=== PATIENT | male | born 1955 | race Hispanic/Latino ===

== ENCOUNTER 2016-10-02 16:35 | Observation (INO) | payer MEDICARE ==
--- NOTE | 2016-10-02 17:50 | Emergency Department Report ---
Entered by CAROLYN LEDEZMA, acting as scribe for BRIGHT BRAGA NP. Chief Complaint: Chest Pain Stated Complaint: CHEST PAINS/DIFFICULTY USING BATHROOM Time Seen by Provider: 10/02/16 17:38 - HPI History of Present Illness: 61 y/o male c/o diffuse chest pain for 1 month, 4/10 in severity, constant since onset, that "feels like someone is standing on him." PT reports urinary retention today but denies abdominal pain, nausea, vomiting, cough and SOB. - ROS Review of Systems: + chest pain + urinary retention - Exam Vital Signs: Vital Signs 10/02/16 17:39 Temperature 97.5 F L Pulse Rate 80 Respiratory 18 Rate Blood Pressure 148/89 O2 Sat by Pulse 96 Oximetry Physical Exam: Constitutional: The patient is a well-developed, well-nourished, in no apparent distress. Patient is alert and oriented x3. Back: No CVA tenderness Abdomen: soft, non- tender MSE screening note: Focused history and physical exam performed. Due to findings the following was ordered: labs, ekg, xr ED Disposition for MSE Condition: Stable This documentation as recorded by the scribe,CAROLYN LEDEZMA,accurately reflects the service I personally performed and the decisions made by me,BRIGHT BRAGA, CLASS C DRIVER.
[2016-10-02 18:05] LABS: Urine Drugs of Abuse Note Disclamer
[2016-10-02 18:32] LABS: Bilirubin,Urine NEG (Negative); Blood,Urine NEG (Negative); Ketones,Urine NEG (Negative); Leukocyte Esterase,Urine NEG (Negative); Nitrite,Urine NEG (Negative); Protein,Urine <15 mg/dL mg/dL (Negative); Urobilinogen,Urine < 2.0 mg/dL (<2.0)
[2016-10-02 18:43] LABS: Eosinophils % (Auto) 1.9 % (0.0-4.3); Hematocrit 42.2 % (35.5-45.6); Hemoglobin 14.4 gm/dl (11.8-15.2); Mean Corpuscular HGB Conc 34 % (32-34); Mean Corpuscular Hemoglobin 30 pg (28-32); Mean Corpuscular Volume 89 fl (84-94); Platelet Count 238 K/mm3 (140-440); Red Blood Count 4.74 M/mm3 (3.65-5.03); Red Cell Distribution Width 14.2 % (13.2-15.2); White Blood Count 7.4 K/mm3 (4.5-11.0)
[2016-10-02 18:50] LABS: Creatine Kinase MB 1.5 ng/mL (0.0-4.0)
[2016-10-02 18:51] LABS: Alanine Aminotransferase 15 units/L (7-56); Albumin 4.6 g/dL (3.9-5); Albumin/Globulin Ratio 1.6 %; Alkaline Phosphatase 45 units/L (35-129); Anion Gap 21 mmol/L; BUN/Creatinine Ratio 18.18; Blood Urea Nitrogen 20 mg/dL (9-20); Calcium 9.4 mg/dL (8.4-10.2); Carbon Dioxide 23 mmol/L (22-30); Chloride 96.8 mmol/L (98-107); Creatine Kinase 80 units/L (55-170); Glucose 96 mg/dL (75-100); Potassium 3.8 mmol/L (3.6-5.0); Sodium 137 mmol/L (137-145); Total Protein 7.4 g/dL (6.3-8.2)
[2016-10-03] MEDS ORDERED: NITRO-BID 2% TP ONE (02:53)
[2016-10-03] MEDS ORDERED: MORPHINE IV ONE (02:53)
[2016-10-03] MEDS ORDERED: ZOFRAN IV ONE (02:53)
[2016-10-03] MEDS ORDERED: PLAVIX PO ONE (02:53)
[2016-10-03] MEDS ORDERED: ASPIRIN PO ONE (02:54)
--- NOTE | 2016-10-03 02:58 | Emergency Department Report ---
HPI - General Chief Complaint: Chest Pain Time Seen by Provider: 10/02/16 17:38 - HPI HPI: Room 7 The patient is a 61-year-old male presenting with a chief complaint of chest pain. Patient states for 1 month is a waxing and waning substernal chest pain that feels as though someone standing on his chest. Patient denies shortness of breath, nausea/vomiting or diaphoresis. Patient currently gives his chest pain a score of 2/10. The patient states last time he had a stress test was over 5 years ago. The patient states she's never had a cardiac catheterization Location: Chest Duration: 1 month Quality: Pressure Severity: 2/10 Modifying factors: [see above] Context: [see above] Mode of transportation: [not driving] ED Past Medical Hx - Past Medical History Hx Hypertension: Yes Hx Psychiatric Treatment: Yes (bipolar / depression) Additional medical history: HIGH CHOLESTEROL. TIA. ENLARGED PROSTATE - Surgical History Past Surgical History?: No Additional Surgical History: KNOT REMOVED UNDER RIGHT ARM "CAT SCRATCH FEVER " - Family History Family history: no significant - Social History Smoking Status: Never Smoker Substance Use Type: None - Medications Home Medications: Home Medications Medication Instructions Recorded Confirmed Last Taken Type Acetaminophen [Tylenol Arthritis] 650 mg PO Q6HR PRN #15 tablet.er 01/30/16 Unknown Rx Levofloxacin [Levaquin] 750 mg PO QDAY #5 tablet 01/30/16 Unknown Rx Tamsulosin [Flomax] 0.4 mg PO QDAY #10 cap 01/30/16 Unknown Rx ED Review of Systems ROS: Stated complaint: CHEST PAINS/DIFFICULTY USING BATHROOM Other details as noted in HPI Comment: All other systems reviewed and negative Constitutional: denies: chills, diaphoresis, fever Eyes: denies: eye pain, eye discharge, vision change ENT: denies: ear pain, throat pain Respiratory: denies: cough, shortness of breath, wheezing Cardiovascular: chest pain Endocrine: no symptoms reported Gastrointestinal: denies: abdominal pain, nausea, vomiting, diarrhea Genitourinary: denies: urgency, dysuria Musculoskeletal: denies: back pain, joint swelling, arthralgia Skin: denies: rash, lesions Neurological: denies: headache, weakness, paresthesias Psychiatric: denies: anxiety, depression Hematological/Lymphatic: denies: easy bleeding, easy bruising Physical Exam - Physical Exam Vital Signs: Vital Signs 10/02/16 10/03/16 17:39 01:46 Temperature 97.5 F L 97.5 F L Pulse Rate 80 85 Respiratory 18 20 Rate Blood Pressure 148/89 156/85 O2 Sat by Pulse 96 Oximetry Physical Exam: GENERAL: The patient is well-developed well-nourished male lying on stretcher not appearing to be in acute distress. [] HEENT: Normocephalic. Atraumatic. Extraocular motions are intact. Patient has moist mucous membranes. NECK: Supple. Trachea midline CHEST/LUNGS: Clear to auscultation. There is no respiratory distress noted. HEART/CARDIOVASCULAR: Regular. There is no tachycardia. There is no gallop rub or murmur. ABDOMEN: Abdomen is soft, nontender. Patient has normal bowel sounds. There is no abdominal distention. SKIN: There is no rash. There is no edema. There is no diaphoresis. NEURO: The patient is awake, alert, and oriented. The patient is cooperative. The patient has normal speech MUSCULOSKELETAL: There is no evidence of acute injury. ED Course Vital Signs 10/02/16 10/03/16 17:39 01:46 Temperature 97.5 F L 97.5 F L Pulse Rate 80 85 Respiratory 18 20 Rate Blood Pressure 148/89 156/85 O2 Sat by Pulse 96 Oximetry ED Medical Decision Making - Lab Data Result diagrams: 10/02/16 17:56 10/02/16 17:56 Laboratory Last Values WBC 7.4 K/mm3 (4.5-11.0) 10/02/16 17:56 RBC 4.74 M/mm3 (3.65-5.03) 10/02/16 17:56 Hgb 14.4 gm/dl (11.8-15.2) 10/02/16 17:56 Hct 42.2 % (35.5-45.6) 10/02/16 17:56 MCV 89 fl (84-94) 10/02/16 17:56 MCH 30 pg (28-32) 10/02/16 17:56 MCHC 34 % (32-34) 10/02/16 17:56 RDW 14.2 % (13.2-15.2) 10/02/16 17:56 Plt Count 238 K/mm3 (140-440) 10/02/16 17:56 Lymph % (Auto) 35.6 % (13.4-35.0) H 10/02/16 17:56 [place] % (Auto) 9.5 % (0.0-7.3) H 10/02/16 17:56 Eos % (Auto) 1.9 % (0.0-4.3) 10/02/16 17:56 Baso % (Auto) 1.0 % (0.0-1.8) 10/02/16 17:56 Lymph # 2.6 K/mm3 (1.2-5.4) 10/02/16 17:56 [place] # 0.7 K/mm3 (0.0-0.8) 10/02/16 17:56 Eos # 0.1 K/mm3 (0.0-0.4) 10/02/16 17:56 Baso # 0.1 K/mm3 (0.0-0.1) 10/02/16 17:56 Seg Neutrophils % 52.0 % (40.0-70.0) 10/02/16 17:56 Seg Neutrophils # 3.9 K/mm3 (1.8-7.7) 10/02/16 17:56 Sodium 137 mmol/L (137-145) 10/02/16 17:56 Potassium 3.8 mmol/L (3.6-5.0) 10/02/16 17:56 Chloride 96.8 mmol/L (98-107) L 10/02/16 17:56 Carbon Dioxide 23 mmol/L (22-30) 10/02/16 17:56 Anion Gap 21 mmol/L 10/02/16 17:56 BUN 20 mg/dL (9-20) 10/02/16 17:56 Creatinine 1.1 mg/dL (0.8-1.5) 10/02/16 17:56 Estimated GFR > 60 ml/min 10/02/16 17:56 BUN/Creatinine Ratio 18.18 % 10/02/16 17:56 Glucose 96 mg/dL (75-100) 10/02/16 17:56 Calcium 9.4 mg/dL (8.4-10.2) 10/02/16 17:56 Total Bilirubin 0.40 mg/dL (0.1-1.2) 10/02/16 17:56 AST 21 units/L (5-40) 10/02/16 17:56 ALT 15 units/L (7-56) 10/02/16 17:56 Alkaline Phosphatase 45 units/L (35-129) 10/02/16 17:56 Total Creatine Kinase 80 units/L (55-170) 10/02/16 17:56 CK-MB (CK-2) 1.5 ng/mL (0.0-4.0) 10/02/16 17:56 CK-MB (CK-2) Rel Index 1.8 (0-4) 10/02/16 17:56 Troponin T < 0.010 ng/mL (0.00-0.029) 10/02/16 23:07 Total Protein 7.4 g/dL (6.3-8.2) 10/02/16 17:56 Albumin 4.6 g/dL (3.9-5) 10/02/16 17:56 Albumin/Globulin Ratio 1.6 % 10/02/16 17:56 Urine Color Yellow (Yellow) 10/02/16 Unknown Urine Turbidity Clear (Clear) 10/02/16 Unknown Urine pH 5.0 (5.0-7.0) 10/02/16 Unknown Ur Specific [place] 1.016 (1.003-1.030) 10/02/16 Unknown Urine Protein <15 mg/dl mg/dL (Negative) 10/02/16 Unknown Urine Glucose (UA) Neg mg/dL (Negative) 10/02/16 Unknown Urine Ketones Neg mg/dL (Negative) 10/02/16 Unknown Urine Blood Neg (Negative) 10/02/16 Unknown Urine Nitrite Neg (Negative) 10/02/16 Unknown Urine Bilirubin Neg (Negative) 10/02/16 Unknown Urine Urobilinogen < 2.0 mg/dL (<2.0) 10/02/16 Unknown Ur Leukocyte Esterase Neg (Negative) 10/02/16 Unknown Urine WBC (Auto) 3.0 /HPF (0.0-6.0) 10/02/16 Unknown Urine RBC (Auto) 2.0 /HPF (0.0-6.0) 10/02/16 Unknown U Epithel Cells (Auto) < 1.0 /HPF (0-13.0) 10/02/16 Unknown Urine Opiates Screen Presumptive negative 10/02/16 Unknown Urine Methadone Screen Presumptive negative 10/02/16 Unknown Ur Barbiturates Screen Presumptive negative 10/02/16 Unknown Ur Phencyclidine Scrn Presumptive negative 10/02/16 Unknown Ur Amphetamines Screen Presumptive negative 10/02/16 Unknown U Benzodiazepines Scrn Presumptive negative 10/02/16 Unknown Urine Cocaine Screen Presumptive negative 10/02/16 Unknown U Marijuana (THC) Screen Presumptive negative 10/02/16 Unknown Drugs of Abuse Note Disclamer 10/02/16 Unknown - EKG Data -: EKG Interpreted by Me EKG shows normal: sinus rhythm Rate: normal - EKG Data When compared to previous EKG there are: previous EKG unavailable Interpretation: other (no ischemic changes seen) - Radiology Data Radiology results: image reviewed (chest x-ray) interpreted by me: Chest x-ray-no focal infiltrates, no pneumothorax - Differential Diagnosis ACS, GERD, pericarditis Critical care attestation.: If time is entered above; I have spent that time in minutes in the direct care of this critically ill patient, excluding procedure time. ED Disposition Clinical Impression: Chest pain Disposition: DC-09 OP ADMIT IP TO THIS HOSP Is pt being admited?: Yes Does the pt Need Aspirin: Yes Condition: Fair Instructions: Chest Pain (ED) Referrals: PRIMARY CARE, [Primary Care Provider] - 3-5 Days Time of Disposition: 02:58 (hospitalist paged)
[2016-10-03] MEDS ORDERED: MORPHINE ONE ×2 (03:09)
[2016-10-03] MEDS ORDERED: MORPHINE IV PRN (04:53)
[2016-10-03] MEDS ORDERED: SODIUM CHLORIDE FLUSH SYRINGE 10 ML IV PRN (04:53)
[2016-10-03] MEDS ORDERED: MILK OF MAGNESIA PO PRN (04:53)
[2016-10-03] MEDS ORDERED: ZOFRAN IV PRN (04:53)
[2016-10-03] MEDS ORDERED: TYLENOL PO PRN (04:53)
[2016-10-03] MEDS ORDERED: DULCOLAX PR PRN (04:53)
--- NOTE | 2016-10-03 04:55 | History and Physical Report ---
History of Present Illness Date of examination: 10/03/16 History of present illness: [id number] man with a history of hypertension, bipolar comes emergency room with complaints of chest pain 1 month.. Pain is across his chest which she describes as someone standing on his chest, intermittent in nature, unable to say how long it last for, intensity 4/10, no radiation any cannot identify exacerbating or relieving factors. He denies nausea vomiting, shortness breath , diaphoresis or palpitation Patient denies cough, abdominal pain, hematochezia, dysuria, frequency, focal weakness, dysarthria, fever chills, polydipsia polyuria, hot or cold intolerance , easy bruisability, or rash or bleeding from mucosal membrane, rhinorrhea, epistaxis, earache, tinnitus, blurry vision, eye discharge, anxiety, depression. Other review of systems negative PAST SURGICAL HISTORY: None SOCIAL HISTORY: Denies alcohol, tobacco, drugs FAMILY HISTORY: Hypertension Medications and Allergies Allergies Allergy/AdvReac Type Severity Reaction Status Date / Time No Known Allergies Allergy Verified 10/02/16 17:37 Home Medications Medication Instructions Recorded Confirmed Last Taken Type Acetaminophen [Tylenol Arthritis] 650 mg PO Q6HR PRN #15 tablet.er 01/30/16 Unknown Rx Levofloxacin [Levaquin] 750 mg PO QDAY #5 tablet 01/30/16 Unknown Rx Tamsulosin [Flomax] 0.4 mg PO QDAY #10 cap 01/30/16 Unknown Rx Active Meds: Active Medications Tamsulosin HCl (Flomax) 0.4 mg PO QDAY COLE Exam - Physical Exam Narrative exam: Gen. appearance: Patient lying in bed, no apparent distress HEENT: Normocephalic, atraumatic, pupils equally round and reactive to light, extraocular movement intact, and no sclericterus,. No JVD or thyromegaly or nodule,neck supple, no carotid bruit ,mucous membranes moist, no exudate or erythema Heart: S1, S2, regular rate and rhythm Lungs: Clear to auscultation bilaterally, breathing comfortable Abdomen: Positive bowel sounds, nontender, nondistended, no organomegaly Extremity: No edema, cyanosis, clubbing Skin: No rash, nodules, warm, dry Neuro: Oriented 3, cranial nerves II-12 intact, speech is fluent, motor and sensory intact - Constitutional Vitals: Temp Pulse Resp BP Pulse Ox 97.5 F L 81 27 H 129/79 96 10/03/16 01:46 10/03/16 03:33 10/03/16 03:33 10/03/16 03:33 10/02/16 17:39 Results - Labs CBC & Chem 7: 10/02/16 17:56 10/02/16 17:56 Labs: Abnormal lab results 10/02/16 10/02/16 Range/Units 17:56 17:56 Lymph % (Auto) 35.6 H (13.4-35.0) % [place] % (Auto) 9.5 H (0.0-7.3) % Chloride 96.8 L (98-107) mmol/L - Imaging and Cardiology EKG: image reviewed Chest x-ray: image reviewed Assessment and Plan Atypical chest pain Hypertension Hyperlipidemia Bipolar History of TIA Admits medicine Check cardiac enzymes, lipid profile and obtain a stress test Start aspirin, IV morphine, DVT prophylaxis Continue appropriate outpatient medications
--- NOTE | 2016-10-03 07:37 | XRay Report ---
CHEST 2 VIEWS INDICATION: Chest pain. COMPARISON: None similar. FINDINGS: PA and lateral chest radiographs demonstrate normal cardiomediastinal silhouette. Clear lungs. Right hemidiaphragm minimally elevated. Possible osteopenia and few bony degenerative changes. CONCLUSION: No acute disease in the chest. Thank you for the opportunity to participate in this patient's care.
--- NOTE | 2016-10-03 08:02 | Admit Criteria Form ---
Admission Criteria Documentation: CARDIOLOGY GRG Clinical Indications for Admission to Inpatient Care ( Place 'X' for any and all applicable criteria): Hospital admission is needed for appropriate care of the patient because of ANY ONE of the following (1): [ ] I. Hemodynamic instability as indicated by ALL of the following (1)(2)(3) (4)(5) [ ]a) Vital signs or other findings not as expected for chronic patient condition or baseline [ ]b) Instability indicated by ANY ONE of the following: [ ]i) Hypotension [ ]ii) Symptomatic Tachycardia unresponsive to treatment ( e.g., analgesia, fluids, sedation as indicated) [ ]iii) Inadequate perfusion indicated by ANY ONE of the following: [ ] 1) Lactic acidosis (> 2 mmol/L) [ ] 2) New abnormal capillary refill (> 3 seconds) [ ] 3) Reduced urine output [ ] 4) New altered mental status [ ]iv) Orthostatic vital sign changes unresponsive to treatment (e.g., fluids) [ ]v) IV inotropic or vasopressor medication required to maintain adequate blood pressure or perfusion [ ] II. Severe heart failure as indicated by ANY ONE of the following(17)(18) [ ]a) Respiratory distress [ ]b) Hypotension [ ]c) Anasarca (refractory to outpatient therapy) [ ]d) Cardiac arrhythmias of immediate concern [ ]e) Myocardial ischemia [ ] III. Cardiac arrhythmias or findings of immediate concern indicated by ANY ONE of the following (19)(20): [ ] a) Heart rhythms that are inherently dangerous or unstable indicated by ANY ONE of the following (21)(22)(23): [ ] i) Resuscitated ventricular fibrillation or cardiac arrest [ ] ii) Ventricular escape rhythm [ ] iii) Sustained ventricular tachycardia (30 seconds or more of ventricular rhythm at greater than 100 beats per minute) [ ] iv) Nonsustained ventricular tachycardia and ANY ONE of the following: [ ] 1) Suspected cardiac ischemia as cause or consequence of ventricular tachycardia [ ] 2) In setting of acute myocarditis [ ] b) Unstable cardiac conduction defects indicated by ANY ONE of the following(23)(24)(25) [ ] i) Type II second-degree atrioventricular block [ ]ii) Third-degree atrioventricular block [ ]iii) New-onset left bundle branch block with suspected myocardial ischemia [ ]c) Any heart rhythm and ANY ONE of the following (21)(22)(26)(27) (28) [ ] i) Continuous long-term ECG monitoring needed (e.g., initiation of drug requiring monitoring for more than 24 hours) [ ] ii) Patient has automatic implanted cardioverter defibrillator that is repeatedly firing, malfunctioning, or in need of immediate adjustment of settings beyond the scope of ambulatory or observation care [ ]d) Heart rhythms of concern due to ANY ONE of the following: [ ] i) Hypotension [ ] ii) Respiratory distress [ ] iii) Association with other significant symptoms (e.g., bradycardia with syncope or ongoing dizziness, supraventricular tachycardia with chest pain (14)(15)(17) [ ] IV. Monitoring for cardiac contusion beyond the scope of observation care needed [A](30)(31)(32) [ ] V. Surgical or device complication (e.g., valve replacement complication , pacemaker dysfunction) (35)(41)(44)(45)(46) [ ] . Inpatient palliative care needed. [B](49) Also use Inpatient Palliative Care Criteria [ ] VII. Nonbacterial thrombotic (marantic) endocarditis (36)(43)(47)(48) [X ] VIII. Cardiology condition, symptom, or finding for which emergency and observation care has failed or are not considered appropriate. [ ] IX. Acute valvular disease requiring inpatient as indicated by ANY ONE of the following (41) [ ]a) Acute valvular regurgitation (42) [ ]b) Noninfectious valvulitis (43) [ ]c) Obstructive valve thrombosis [ ]d) Paravalvular leak [ ]e) Other significant valvular disorder remaining after emergency or observation level of care (as appropriate) [ ]X. Pericardial disease requiring inpatient treatment as indicated by ANY ONE of the following (33)(34)(35)(36)(37) [ ]a) Suspected tamponade (38)(39)(40) [ ]b) Hemopericardium [ ]c) Other significant pericardial disorder remaining after emergency or observation level of care (as appropriate) [ ] XI. Cardiac ischemia beyond scope of emergency and observation care. [ ] XII. Hypertension requiring inpatient treatment as indicated by ANY ONE of the following (6)(7)(8) [ ]a) SBP greater than 220 mm Hg or DBP greater than 120 mmHg despite treatment [ ]b) SBP greater than 140 mm Hg or DBP greater than 100 mm Hg with evidence of acute end organ damage as indicated by ANY ONE of the following [ ] i) Altered mental status [ ] ii) Acute renal failure as indicated by new onset of ANY ONE of the following (9)(10)(11)(12)(13) [ ]1) 3-fold rise in serum creatinine from baseline [ ]2) Serum creatinine greater than 4 mg/dL ( 354 micromoles/L) with acute rise greater than 0.5 mg/dL (44.2 micromoles/L) [ ]3) Reduction of more than 75% in estimated glomerular filtration rate from baseline [ ]4) Estimated glomerular filtration rate less than 35 mL/min/1.73m2 (0.59 mL/sec/1.73m2) in child up to 18 years of age [ ]5) Cessation of urine output indicated by ALL of the following [ ]A. Adequate volume status [ ]B. Inadequate urine output as indicated by ANY ONE of the following [ ]a. Urine output less than 0.3 mL/kg/hr for 24 hours [ ]b. Anuria (urine output less than 0.1 mL/kg/hr) for 12 hours [ ] iii) Aortic dissection [ ] iv) Myocardial Ischemia [ ] v) Left ventricular heart failure [ ]vi) Retinal Hemorrhage [ ]vii) Other significant finding [ ]c) Hypertension in child requiring inpatient treatment as indicated by ALL of the following(14)(15)(16) [ ] i) Outpatient treatment not effective, not available, or not appropriate [ ]ii) SBP or DBP greater than 95th percentile for age [ ]iii) Evidence of acute end organ damage as indicated by ANY ONE of the following [ ]1) Altered mental status [ ]2) Acute renal failure as indicated by new onset of ANY ONE of the following(9)(10)(11)(12)(13) [ ]A. 3-fold rise in serum creatinine from baseline [ ]B. Serum creatinine greater than 4 mg/dL (354 micromoles/L) with acute rise greater than 0.5 mg/dL (44.2 micromoles/L) [ ]C. Reduction of more than 75% in estimated glomerular filtration rate from baseline [ ]D. Estimated glomerular filtration rate less than 35 mL/min/1.73m2 (0.59 mL/sec/1.73m2) in child up to 18 years of age [ ]E. Cessation of urine output indicated by ALL of the following [ ]a. Adequate volume status [ ]b. Inadequate urine output as indicated by ANY ONE of the following [ ]i) Urine output less than 0.3 mL/kg/hr for 24 hours [ ]ii) Anuria ( urine output less than 0.1 mL/kg/hr) for 12 hours [ ]3) Severe headache [ ]4) Visual disturbance [ ]5) Retinal hemorrhage [ ]6) Other significant finding [ ]XIII. Complications of transplanted heart indicated by ANY ONE of the following(61): [ ]a) Acute graft rejection requiring inpatient management (eg, intravenous immunosuppression)(62)(63) [ ]b) Acute graft heart failure indicated by ANY ONE of the following(64): [ ]i) Hemodynamic instability [ ]ii) Cardiac arrhythmias of immediate concern [ ]iii) Pulmonary edema that is very severe (eg, mechanical ventilation needed, imminent or likely, need for 100% oxygen to keep oxygen saturation above 90%) [ ]iv) Pulmonary edema that is persistent as indicated by ALL of the following: [ ]1) New need for oxygen therapy to keep oxygen saturation above 90% (or increased FiO2 need from baseline) [ ]2) Has not improved sufficiently with emergency department or observation care IV diuretics or other heart failure treatments[E] [ ]v) Altered mental status that is severe or persistent [ ]vi) Increased creatinine (new on laboratory test) with reduction of more than 50% in estimated glomerular filtration rate from baseline [ ]vii) Progressively (ongoing) rising creatinine (known from past laboratory test) with reduction of more than 25% in estimated glomerular filtration rate from baseline [ ]viii) Acute renal failure [ ]ix) Acute peripheral ischemia (eg, examination shows pulseless, cool, mottled, or cyanotic extremity) [ ]x) Pulmonary artery catheter monitoring needed [ ]xi) Other sign or symptom of heart failure requiring inpatient treatment (ie, too severe or not responsive to outpatient and observation care treatment) [ ]c) Infection requiring inpatient management (eg, Hemodynamic instability, need for intravenous antimicrobial treatment)(66)(67)(68)(69)(70) [ ]d) Cardiac allograft vasculopathy requiring inpatient management ( eg evidence of cardiac ischemia)(71) [ ]e) Other complication of transplanted heart (eg, stroke, severe pulmonary hypertension, severe valvular dysfunction) requiring inpatient management(72) The original [facility] [employer] content created by [facility] has been revised. The portions of the content which have been revised are identified through the use of italic text or in bold, and [facility] has neither reviewed nor approved the modified material. All other unmodified content is copyright [facility] [employer]. Please see references footnoted in the original [facility] [employer] edition 2016 Admission Criteria Met: Yes
[2016-10-03] MEDS ORDERED: LEXISCAN IV ONE (09:20)
[2016-10-03] MEDS ORDERED: LOVENOX SUB-Q SCH ×2 (10:00)
[2016-10-03] MEDS ORDERED: FLOMAX PO SCH (10:00)
--- NOTE | 2016-10-03 10:45 | Discharge Summary ---
Providers - Providers Date of Admission: 10/03/16 04:53 Date of discharge: 10/03/16 Attending physician: DEBRA LAO Primary care physician: KELLI GARCIA MD Hospitalization Condition: Fair Hospital course: 61-year-old man with a history of hypertension, bipolar comes emergency room with complaints of chest pain 1 month. His Pain is across his chest which he describes as someone standing on his chest, intermittent in nature, unable to say how long it last for, intensity 4/10, no radiation and cannot identify exacerbating or relieving factors. He was monitored with serial cardiac enzymes and EKG. chest x-ray was unremarkable. Myocardium stress test was obtained and showed no reversible ischemia. He was discharged back to psych facility in stable condition. Discharge diagnoses: Atypical chest pain, likely due to GERD Hypertension, better controlled Hyperlipidemia Bipolar disorder History of TIA Disposition: DC-01 TO HOME OR SELFCARE Time spent for discharge: 34 minutes Core Measure Documentation - Palliative Care Palliative Care/ Comfort Measures: Not Applicable - Core Measures Any of the following diagnoses?: none Exam - Constitutional Vitals: Temp Pulse Resp BP Pulse Ox 98.8 F 86 18 147/72 95 10/03/16 09:31 10/03/16 09:31 10/03/16 09:31 10/03/16 09:31 10/03/16 09:31 General appearance: Present: no acute distress, well-nourished - EENT Eyes: Present: PERRL ENT: hearing intact, clear oral mucosa - Neck Neck: Present: supple, normal ROM - Respiratory Respiratory effort: normal Respiratory: bilateral: CTA - Cardiovascular Heart Sounds: Present: S1 & S2. Absent: rub, click - Extremities Extremities: pulses symmetrical, No edema Peripheral Pulses: within normal limits - Abdominal General gastrointestinal: Present: soft, non-tender, non-distended, normal bowel sounds - Integumentary Integumentary: Present: clear, warm, dry - Musculoskeletal Musculoskeletal: gait normal, strength equal bilaterally - Psychiatric Psychiatric: appropriate mood/affect, intact judgment & insight - Neurologic Neurologic: CNII-XII intact, moves all extremities Plan Activity: advance as tolerated Weight Bearing Status: Weight Bear as Tolerated Diet: low fat, low salt Follow up with: PRIMARY CARE, [Primary Care Provider] - 3-5 Days Prescriptions: Pantoprazole [Protonix TAB] 20 mg PO QDAY #30 tablet.
--- NOTE | 2016-10-03 13:38 | Query- Chest Pain ---
Bernardo Mart____Marcin Date: 10/03/16 Jayme/ROMEL:____Chauncey Morillosruthi Phone#:____[phone] Exercise your independent professional judgment when responding to query. Questions asked do not imply a particular answer is desired or expected. We greatly appreciate your clarification on this issue. Clinical Documentation States: 61 year old male was admitted on 10/03/16. The discharge summary states " Hospital course: Discharge diagnoses: Atypical chest pain Hypertension Hyperlipidemia Bipolar History of TIA " Please document the etiology of Chest Pain: [ ] Myocardial Infarction [ ] Pneumonia [ ] Mediastinitis [ ] Costochondritis [ ] Pulmonary Embolism [ ] Coronary Artery Disease [ X] GERD [ ] Other: [ ] Comment/Explanation: Present on Admission: [ X] Yes (Y) [ ] Clinically undeterminable (W) [ ] No(N) Please document response in your Progress Notes and/or Discharge Summary and indicate if the condition was present on admission. DEJON
--- NOTE | 2016-10-04 00:01 | Treadmill Report ---
REFERRING PHYSICIAN: Dr. Amberly Matamoros PROTOCOL: The patient was brought to the stress lab in a postabsorptive state, underwent rest imaging and 10 mCi of technetium given. Next, Lexiscan stress test performed via standard protocol. At peak stress, the patient was given 26 mCi of technetium 99m. Shortly thereafter, the patient underwent stress imaging. Interpretation raw imaging reveals mild GI artifact. No significant motion artifact. SPECT imaging examined carefully in the horizontal long axis, vertical long axis and short axis views. Technically mildly difficult study, but grossly it is normal. There appears to be normal homogenous uptake of radioisotope in all reported segments. No evidence of a significant fixed or reversible perfusion defects suggestive of prior infarction or ischemia. Gated wall motion reveals normal systolic thickening. Calculated ejection fraction of 68%. No TID. CONCLUSIONS: 1. Probably normal nuclear stress test without evidence of significant degree of prior infarction or active ischemia. 2. Normal left ventricular systolic performance without evidence of transient ischemic dilatation or stress-induced segmental wall motion abnormalities. [facility]# [id number] SBM/NTS
[2016-10-04 10:45] VITALS: BP 143/82
== END 2016-10-03 17:00 | disposition home or self-care (01) ==
LOC: ED 16:35 → INTOOBSV 10-03 04:53 → 4A 10-03 04:53
PROVIDERS: ADMIT Internal Medicine; ATTEND Internal Medicine
DX: R07.89 Other chest pain (principal); K21.9 Gastro-esophageal reflux disease without esophagitis; I10 Essential (primary) hypertension; F31.9 Bipolar disorder, unspecified; E78.5 Hyperlipidemia, unspecified; Z86.73 Personal history of transient ischemic attack (TIA), and cerebral infarction without residual deficits; Z82.49 Family history of ischemic heart disease and other diseases of the circulatory system
CPT/HCPCS: 36415; 71020; 78452; 80053; 80061; 80307; 81001; 82550; 82553; 84484; 85025; 85379; 93005; 93010; 93017; 94760; 96374; 96375; 99285; A9502; G0378; J1650; J2270; J2405; J2785

== ENCOUNTER 2017-10-07 13:55 | Emergency (ER) | payer MEDICARE ==
[2017-10-07 14:18] VITALS: BP 146/84
--- NOTE | 2017-10-07 18:08 | Emergency Department Report ---
ED Male HPI - General Chief complaint: Urogenital-Male Stated complaint: KIDNEY PROBLEMS Time Seen by Provider: 10/07/17 17:34 Source: patient Mode of arrival: Ambulatory Limitations: No Limitations - History of Present Illness Initial comments: This is a 62-year-old male nontoxic, well nourished in appearance, no acute signs of distress presents to the ED with c/o of dyrusia, urgency, and polyuria x4 days. Patient denies any testicular pain or swelling. Patient denies any penile discharge or penile ulcers. Patient denies any nausea, vomiting, chest pain, shortness of breathe, fever, chills, headache, back pain, numbness, tingling, stiff neck. Patient denies any other urinary symptoms. Patient denies any allergies or PMH. MD Complaint: dysuria Radiation: none Severity: mild Severity scale (0 -10): 3 Quality: burning Consistency: constant Improves with: none Worsens with: urination denies other symptoms, dysuria. denies: discharge, swelling, mass, rash, urinary retention, blood in urine, fever, nausea/vomiting, incontinence - Related Data Previous Rx's Medication Instructions Recorded Last Taken Type Pantoprazole [Protonix TAB] 20 mg PO QDAY #30 tablet. 10/03/16 Unknown Rx Tamsulosin [Flomax] 0.4 mg PO QDAY capsule 10/03/16 Unknown Rx Ciprofloxacin HCl [Ciprofloxacin 500 mg PO Q12HR #14 tab 10/07/17 Unknown Rx TAB] Allergies Allergy/AdvReac Type Severity Reaction Status Date / Time No Known Allergies Allergy Verified 10/02/16 17:37 ED Review of Systems ROS: Stated complaint: KIDNEY PROBLEMS Other details as noted in HPI Constitutional: denies: chills, fever Eyes: denies: eye pain, eye discharge, vision change ENT: denies: ear pain, throat pain Respiratory: denies: cough, shortness of breath, wheezing Cardiovascular: denies: chest pain, palpitations Endocrine: no symptoms reported Gastrointestinal: denies: abdominal pain, nausea, diarrhea Genitourinary: urgency, dysuria, frequency. denies: hematuria, discharge, testicular pain, testicular mass Musculoskeletal: denies: back pain, joint swelling, arthralgia Skin: denies: rash, lesions Neurological: denies: headache, weakness, paresthesias Psychiatric: denies: anxiety, depression Hematological/Lymphatic: denies: easy bleeding, easy bruising ED Past Medical Hx - Past Medical History Hx Hypertension: Yes Hx Psychiatric Treatment: Yes (bipolar / depression) Additional medical history: HIGH CHOLESTEROL. TIA. ENLARGED PROSTATE - Surgical History Additional Surgical History: KNOT REMOVED UNDER RIGHT ARM "CAT SCRATCH FEVER " - Social History Smoking Status: Never Smoker Substance Use Type: None - Medications Home Medications: Home Medications Medication Instructions Recorded Confirmed Last Taken Type Pantoprazole [Protonix TAB] 20 mg PO QDAY #30 tablet.dr 10/03/16 Unknown Rx Tamsulosin [Flomax] 0.4 mg PO QDAY capsule 10/03/16 Unknown Rx Ciprofloxacin HCl [Ciprofloxacin 500 mg PO Q12HR #14 tab 10/07/17 Unknown Rx TAB] ED Physical Exam - General Limitations: No Limitations General appearance: alert, in no apparent distress - Head Head exam: Present: atraumatic, normocephalic - Eye Eye exam: Present: normal appearance Pupils: Present: normal accommodation - ENT ENT exam: Present: normal exam, mucous membranes moist - Neck Neck exam: Present: normal inspection, full ROM. Absent: tenderness, meningismus, lymphadenopathy - Respiratory Respiratory exam: Present: normal lung sounds bilaterally. Absent: respiratory distress, wheezes, rales, rhonchi, stridor, chest wall tenderness, accessory muscle use, decreased breath sounds, prolonged expiratory - Cardiovascular Cardiovascular Exam: Present: regular rate, normal rhythm, normal heart sounds. Absent: irregular rhythm, systolic murmur, diastolic murmur, rubs, gallop - GI/Abdominal GI/Abdominal exam: Present: soft, normal bowel sounds. Absent: distended, tenderness, guarding, rebound, rigid, diminished bowel sounds - Rectal Rectal exam: Present: deferred - exam: Present: normal inspection. Absent: testicular tenderness, urethral discharge, scrotal swelling, vertical testicular lie External exam: Present: normal external exam. Absent: erythema, swelling, lesions, lacerations, ecchymosis, bleeding - Extremities Exam Extremities exam: Present: normal inspection, full ROM - Back Exam Back exam: Present: normal inspection, full ROM. Absent: tenderness, CVA tenderness (R), CVA tenderness (L), muscle spasm, paraspinal tenderness, vertebral tenderness, rash noted - Neurological Exam Neurological exam: Present: alert, oriented X3, normal gait - Psychiatric Psychiatric exam: Present: normal affect, normal mood - Skin Skin exam: Present: warm, dry, intact, normal color. Absent: rash ED Course Vital Signs 10/07/17 14:14 Temperature 97.7 F Pulse Rate 97 H Respiratory 16 Rate Blood Pressure 146/84 O2 Sat by Pulse 97 Oximetry - Reevaluation(s) Reevaluation #1: 10/07/17 18:07 Patient is speaking in full sentences with no signs of distress noted. ED Medical Decision Making - Medical Decision Making This is a 62-year-old male that presents for UTI. Patient is stable was examined by me. UA obtained. Urine culture pending. There is no CVA tenderness. Patient did receive 1 g of Rocephin in the ED. Patient denies any STD exposure. Patient discharged with ciprofloxacin 7 days. Patient was referred to Follow-up with a primary care doctor in 3-5 days or if symptoms worsen and continue return to emergency room as soon as possible. At time of discharge, the patient does not seem toxic or ill in appearance. No acute signs of distress noted. Patient agrees to discharge treatment plan of care. No further questions noted by the patient. Critical care attestation.: If time is entered above; I have spent that time in minutes in the direct care of this critically ill patient, excluding procedure time. ED Disposition Clinical Impression: UTI (urinary tract infection) Qualifiers: Urinary tract infection type: site unspecified Hematuria presence: without hematuria Qualified Code(s): N39.0 - Urinary tract infection, site not specified Disposition: DC-01 TO HOME OR SELFCARE Is pt being admited?: No Does the pt Need Aspirin: No Condition: Stable Instructions: Urinary Tract Infection in Men (ED), Ciprofloxacin (By mouth) Additional Instructions: Follow-up with a primary care doctor in 3-5 days or if symptoms worsen and continue return to emergency room as soon as possible. Prescriptions: Ciprofloxacin HCl [Ciprofloxacin TAB] 500 mg PO Q12HR #14 tab Referrals: KELLI GARCIA MD [Primary Care Provider] - 3-5 Days BURKE POSEY MD [Staff Physician] - 3-5 Days [facility] [Outside] - 3-5 Days [facility] [Outside] - 3-5 Days Forms: Work/School Release Form(ED)
[2017-10-07 18:48] LABS: Bacteria,Urine 2+ /HPF (Negative); Bilirubin,Urine NEG (Negative); Blood,Urine NEG (Negative); Color,Urine Yellow (Yellow); Mucus,Urine FEW /HPF; Protein,Urine <15 mg/dL mg/dL (Negative); Urobilinogen,Urine < 2.0 mg/dL (<2.0)
[2017-10-07] MEDS ORDERED: ROCEPHIN IM ONE (18:55)
[2017-10-07] MEDS ORDERED: XYLOCAINE 1% MPF 5 mL INFILTRATI ONE (18:55)
== END 2017-10-07 20:01 | disposition home or self-care (01) ==
LOC: ED 13:55
DX: N39.0 Urinary tract infection, site not specified (principal); F31.9 Bipolar disorder, unspecified; I10 Essential (primary) hypertension; E78.00 Pure hypercholesterolemia, unspecified; Z86.73 Personal history of transient ischemic attack (TIA), and cerebral infarction without residual deficits
CPT/HCPCS: 81001; 87086; 96372; 99283; J0696; 87076; 87186

== ENCOUNTER 2017-12-02 09:50 | Inpatient (IN) | payer MEDICARE ==
[2017-12-02] MEDS ORDERED: NACL 0.9% 500 ML 500 ML IV ONE (10:45)
--- NOTE | 2017-12-02 10:47 | Emergency Department Report ---
ED Syncope HPI - General Chief Complaint: Syncope Stated Complaint: SYNCOPY Time Seen by Provider: 12/02/17 10:36 Source: patient, EMS (ems notes not available at time of chart dictation), RN notes reviewed Exam Limitations: other (patient is a poor historian) - History of Present Illness Initial Comments: This is a 62-year-old gentleman who is not known to this provider previously. His past medical history includes hypertension, high cholesterol, TIA, bipolar and depression as well as schizoaffective disorder. Patient is brought to the hospital by EMS for evaluation of unprovoked syncope. Patient reports that he was walking and then passed out. He reports that prior to the event he did not have headache, neck pain, abdominal pain, shortness of breath. He indicates central chest pain which is now resolved. He denies DVT and pulmonary embolus risk factors. He complains of mild resolved chest pain which did not radiate where, exacerbating or relieving factors. He also complains of mild occipital headache where he fell. There is no midline neck pain. Timing/Prior Episodes: single episode today Precipitating Factors: Positive: none Context: activity Loss of Consciousness: brief (seconds) Current Symptoms: back to normal, chest pain - Related Data Allergies/Adverse Reactions: Allergies No Known Allergies Allergy (Verified 12/02/17 10:17) Home Medications: Ambulatory Orders Pantoprazole [Protonix TAB] 20 mg PO QDAY #30 tablet. 10/03/16 Tamsulosin [Flomax] 0.4 mg PO QDAY capsule 10/03/16 Ciprofloxacin HCl [Ciprofloxacin TAB] 500 mg PO Q12HR #14 tab 10/07/17 ED Review of Systems ROS: Stated complaint: SYNCOPY Other details as noted in HPI Comment: All other systems reviewed and negative Cardiovascular: chest pain, syncope Gastrointestinal: denies: abdominal pain Neurological: headache ED Past Medical Hx - Past Medical History Previous Medical History?: Yes Hx Hypertension: Yes Hx Renal Disease: Yes (CKD) Hx Psychiatric Treatment: Yes (bipolar / depression/schizoaffective) Additional medical history: HIGH CHOLESTEROL. TIA. ENLARGED PROSTATE - Surgical History Past Surgical History?: Yes Additional Surgical History: KNOT REMOVED UNDER RIGHT ARM "CAT SCRATCH FEVER ", tonsilectomy - Social History Smoking Status: Former Smoker Substance Use Type: None - Medications Home Medications: Home Medications Medication Instructions Recorded Confirmed Last Taken Type Pantoprazole [Protonix TAB] 20 mg PO QDAY #30 tablet. 10/03/16 Unknown Rx Tamsulosin [Flomax] 0.4 mg PO QDAY capsule 10/03/16 Unknown Rx Ciprofloxacin HCl [Ciprofloxacin 500 mg PO Q12HR #14 tab 10/07/17 Unknown Rx TAB] ED Physical Exam - General Limitations: No Limitations General appearance: alert, in no apparent distress - Head Head exam: Present: atraumatic, normocephalic - Eye Eye exam: Present: normal appearance, PERRL, EOMI, other (visual acuity intact to finger counting, color perception, reading at a close distance). Absent: nystagmus - ENT ENT exam: Present: normal exam, normal orophraynx, mucous membranes moist, normal external ear exam - Neck Neck exam: Present: normal inspection, full ROM - Respiratory Respiratory exam: Present: normal lung sounds bilaterally. Absent: respiratory distress - Cardiovascular Cardiovascular Exam: Present: regular rate, normal rhythm, normal heart sounds. Absent: bradycardia, tachycardia, irregular rhythm, systolic murmur, diastolic murmur, rubs, gallop - GI/Abdominal GI/Abdominal exam: Present: soft, normal bowel sounds. Absent: distended, tenderness, guarding, rebound, rigid, pulsatile mass - Rectal Rectal exam: Present: deferred - Extremities Exam Extremities exam: Present: normal inspection, full ROM, normal capillary refill , other (2+ pulses noted in the bilateral upper, lower extremities. Compartments soft. No long bony tenderness. The pelvis is stable.). Absent: pedal edema, joint swelling, calf tenderness - Back Exam Back exam: Present: normal inspection, full ROM. Absent: tenderness, CVA tenderness (R), paraspinal tenderness, vertebral tenderness - Neurological Exam Neurological exam: Present: alert, oriented X3, CN II-XII intact, other ( Extraocular movements intact. Tongue midline. No facial droop. Facial sensation intact to light touch in the V1, V2, V3 distribution bilaterally. 5 and 5 strength in 4 extremities.. Sensation is intact to light touch in 4 extremities.). Absent: motor sensory deficit - Psychiatric Psychiatric exam: Present: flat affect - Skin Skin exam: Present: warm, dry, intact, normal color. Absent: rash ED Course Vital Signs 12/02/17 12/02/17 12/02/17 09:50 09:57 10:00 Temperature 98.2 F Pulse Rate 64 67 Respiratory 19 20 16 Rate Blood Pressure 125/63 125/63 O2 Sat by Pulse 99 99 100 Oximetry 12/02/17 12/02/17 12/02/17 10:30 11:00 11:30 Temperature Pulse Rate 66 65 66 Respiratory 18 18 21 Rate Blood Pressure 132/57 120/66 126/76 O2 Sat by Pulse 99 99 99 Oximetry 12/02/17 12/02/17 12:00 12:30 Temperature Pulse Rate 66 69 Respiratory 17 24 Rate Blood Pressure 136/68 122/70 O2 Sat by Pulse 98 98 Oximetry - Reevaluation(s) Reevaluation #1: 12/02/17 12:37 Differential diagnosis, including but not limited to: Orthostasis, vagal event, acute coronary syndrome, structural cardiac disease, pulmonary embolus, intracranial injury, intracranial hemorrhage, Assessment and plan: 62-year-old gentleman with resolved chest pain and single episode of syncope. Clinically sober at this time, with a Tevin Coma Scale of 15, and an nih -score of 0.Patient is clinically sober at this time. The cervical spine is cleared through nexus and nepalese c spine rule a noncontrast CT scan of the brain is pending. A CT angiogram of the chest to exclude aortic disease/pulmonary embolus is pending. X-ray chest is negative. Patient will be admitted to the hospital for cardiac risk stratification once his initial diagnostics have returned. Reevaluation #2: 12/02/17 13:54 CT scan of the brain is negative. CT scan of the chest is negative. Hospital physician is paged to arrange admission. Reevaluation #3: 12/02/17 14:33 Dr Mckenzie Reynolds accepts patient ED Medical Decision Making - Lab Data Result diagrams: 12/02/17 11:20 12/02/17 11:20 Vital Signs 12/02/17 09:50 Temperature 98.2 F Pulse Rate 64 Respiratory 19 Rate Blood Pressure 125/63 O2 Sat by Pulse 99 Oximetry Lab Results 12/02/17 12/02/17 12/02/17 Range/Units 11:20 11:20 11:20 WBC 5.1 (4.5-11.0) K/mm3 RBC 4.26 (3.65-5.03) M/mm3 Hgb 13.7 (11.8-15.2) gm/dl Hct 39.7 (35.5-45.6) % MCV 93 (84-94) fl MCH 32 (28-32) pg MCHC 34 (32-34) % RDW 15.3 H (13.2-15.2) % Plt Count 254 (140-440) K/mm3 Lymph % (Auto) 29.4 (13.4-35.0) % [place] % (Auto) 10.6 H (0.0-7.3) % Eos % (Auto) 2.1 (0.0-4.3) % Baso % (Auto) 0.6 (0.0-1.8) % Lymph # 1.5 (1.2-5.4) K/mm3 [place] # 0.5 (0.0-0.8) K/mm3 Eos # 0.1 (0.0-0.4) K/mm3 Baso # 0.0 (0.0-0.1) K/mm3 Seg Neutrophils % 57.3 (40.0-70.0) % Seg Neutrophils # 2.9 (1.8-7.7) K/mm3 PT 14.1 (12.2-14.9) Sec. INR 1.04 (0.87-1.13) Sodium 136 L (137-145) mmol/L Potassium 5.5 H (3.6-5.0) mmol/L Chloride 101.4 (98-107) mmol/L Carbon Dioxide 22 (22-30) mmol/L Anion Gap 18 mmol/L BUN 22 H (9-20) mg/dL Creatinine 1.4 (0.8-1.5) mg/dL Estimated GFR 51 ml/min BUN/Creatinine Ratio 16 % Glucose 112 H (75-100) mg/dL Calcium 9.1 (8.4-10.2) mg/dL Magnesium 2.20 (1.7-2.3) mg/dL Total Bilirubin 0.60 (0.1-1.2) mg/dL AST 22 (5-40) units/L ALT 13 (7-56) units/L Alkaline Phosphatase 52 (35-129) units/L Total Creatine Kinase (55-170) units/L Troponin T < 0.010 (0.00-0.029) ng/mL Total Protein 7.6 (6.3-8.2) g/dL Albumin 4.4 (3.9-5) g/dL Albumin/Globulin Ratio 1.4 % Salicylates (2.8-20.0) mg/dL Acetaminophen (10.0-30.0) ug/mL 12/02/17 12/02/17 12/02/17 Range/Units 11:20 11:20 11:20 WBC (4.5-11.0) K/mm3 RBC (3.65-5.03) M/mm3 Hgb (11.8-15.2) gm/dl Hct (35.5-45.6) % MCV (84-94) fl MCH (28-32) pg MCHC (32-34) % RDW (13.2-15.2) % Plt Count (140-440) K/mm3 Lymph % (Auto) (13.4-35.0) % [place] % (Auto) (0.0-7.3) % Eos % (Auto) (0.0-4.3) % Baso % (Auto) (0.0-1.8) % Lymph # (1.2-5.4) K/mm3 [place] # (0.0-0.8) K/mm3 Eos # (0.0-0.4) K/mm3 Baso # (0.0-0.1) K/mm3 Seg Neutrophils % (40.0-70.0) % Seg Neutrophils # (1.8-7.7) K/mm3 PT (12.2-14.9) Sec. INR (0.87-1.13) Sodium (137-145) mmol/L Potassium (3.6-5.0) mmol/L Chloride (98-107) mmol/L Carbon Dioxide (22-30) mmol/L Anion Gap mmol/L BUN (9-20) mg/dL Creatinine (0.8-1.5) mg/dL Estimated GFR ml/min BUN/Creatinine Ratio % Glucose (75-100) mg/dL Calcium (8.4-10.2) mg/dL Magnesium (1.7-2.3) mg/dL Total Bilirubin (0.1-1.2) mg/dL AST (5-40) units/L ALT (7-56) units/L Alkaline Phosphatase (35-129) units/L Total Creatine Kinase 61 (55-170) units/L Troponin T (0.00-0.029) ng/mL Total Protein (6.3-8.2) g/dL Albumin (3.9-5) g/dL Albumin/Globulin Ratio % Salicylates < 0.3 L (2.8-20.0) mg/dL Acetaminophen < 5.0 L (10.0-30.0) ug/mL - EKG Data -: EKG Interpreted by Me EKG shows normal: sinus rhythm, axis, intervals, QRS complexes, ST-T waves - EKG Data When compared to previous EKG there are: previous EKG unavailable - Radiology Data Radiology results: image reviewed X-ray the chest is interpreted as being negative for acute disease. Critical care attestation.: If time is entered above; I have spent that time in minutes in the direct care of this critically ill patient, excluding procedure time. ED Disposition Clinical Impression: Chest pain, Syncope Disposition: 09 OP ADMIT IP TO THIS HOSP Is pt being admited?: Yes Does the pt Need Aspirin: Yes Condition: Good Instructions: Chest Pain (ED), Syncope (ED) Referrals: PRIMARY CARE, [Primary Care Provider] - 3-5 Days
--- NOTE | 2017-12-02 10:58 | XRay Report ---
AP CHEST: HISTORY: Syncope Partial atelectasis in the right middle lobe or right lower lobe has developed since 10/02/16 exam. Otherwise, the lungs are clear. No large pleural effusion or pneumothorax. Normal heart and mediastinal structures. IMPRESSION: Atelectatic changes at the right lung base. Otherwise, unremarkable AP chest.
[2017-12-02 11:37] LABS: Basophils % (Auto) 0.6 % (0.0-1.8); Eosinophils # (Auto) 0.1 K/mm3 (0.0-0.4); Eosinophils % (Auto) 2.1 % (0.0-4.3); Hematocrit 39.7 % (35.5-45.6); Hemoglobin 13.7 gm/dl (11.8-15.2); Lymphocytes # (Auto) 1.5 K/mm3 (1.2-5.4); Lymphocytes % (Auto) 29.4 % (13.4-35.0); Mean Corpuscular HGB Conc 34 % (32-34); Mean Corpuscular Hemoglobin 32 pg (28-32); Mean Corpuscular Volume 93 fl (84-94); Monocytes # (Auto) 0.5 K/mm3 (0.0-0.8); Monocytes % (Auto) 10.6 % (0.0-7.3); Platelet Count 254 K/mm3 (140-440); Red Blood Count 4.26 M/mm3 (3.65-5.03); Red Cell Distribution Width 15.3 % (13.2-15.2)
[2017-12-02 11:48] LABS: INR 1.04 (0.87-1.13)
[2017-12-02 12:15] LABS: Alanine Aminotransferase 13 units/L (7-56); Albumin 4.4 g/dL (3.9-5); BUN/Creatinine Ratio 16; Blood Urea Nitrogen 22 mg/dL (9-20); Calcium 9.1 mg/dL (8.4-10.2); Hemolysis Index 9
--- NOTE | 2017-12-02 13:42 | Cat Scan Report ---
CT HEAD WITHOUT CONTRAST: HISTORY: Syncope. TECHNIQUE: Sequential 2.5mm CT images. COMPARISON: none. FINDINGS: Cerebral Parenchyma: Within normal limits. Cerebellum: Within normal limits. Brainstem: Within normal limits. Ventricles: Normal. Sella: Normal. Extra-axial spaces: Normal. Basal Cisterns: Normal. Intracranial Hemorrhage: None. Midline Shift: None. Calvarium: Normal. Sinuses: Normal. Mastoid Air Cells: Normal. Visualized Orbits: Normal. IMPRESSION: Cranial CT scan within normal limits.
--- NOTE | 2017-12-02 13:48 | Cat Scan Report ---
CTA CHEST: HISTORY: Chest pain, syncope. COMPARISON: none. TECHNIQUE: Helical CT in 1.25mm intervals following IV contrast. Pulmonary embolus protocol. Sagittal and coronal reformatted images. Rotational MIP images. FINDINGS: Contrast bolus is satisfactory. No pulmonary embolus is identified. Thyroid gland: Normal. Tracheobronchial tree: Normal. Esophagus: Normal. Heart: Normal. Pericardium: Normal. Mediastinum: Normal. Lung Terry: normal. Pleural Spaces: Normal. Musculoskeletal: Mild thoracic spondylosis. Comment: Limited images of the upper abdomen demonstrate numerous tiny calcified gallstones within the gallbladder. No biliary dilatation or inflammation. Mild renal atrophy is also suspected. IMPRESSION: No evidence for pulmonary embolus. Unremarkable CT chest with contrast. Cholelithiasis.
[2017-12-02] MEDS ORDERED: KIONEX PO ONE (14:33)
[2017-12-02] MEDS ORDERED: BABY ASPIRIN PO ONE (14:34)
[2017-12-02] MEDS ORDERED: BABY ASPIRIN ONE (15:45)
[2017-12-02] MEDS ORDERED: KIONEX ONE (15:45)
--- NOTE | 2017-12-02 19:34 | History and Physical Report ---
History of Present Illness Date of admission: 12/02/17 14:32 Medications and Allergies Allergies Allergy/AdvReac Type Severity Reaction Status Date / Time No Known Allergies Allergy Verified 12/02/17 10:17 Home Medications Medication Instructions Recorded Confirmed Last Taken Type Ciprofloxacin HCl [Ciprofloxacin 500 mg PO Q12HR #14 tab 10/07/17 12/02/17 Unknown Rx TAB] Amlodipine Besylate [Norvasc] 2.5 mg PO DAILY 12/02/17 12/02/17 Unknown History Benztropine [Cogentin] 2 mg PO QHS 12/02/17 12/02/17 Unknown History Carvedilol [Coreg] 6.25 mg PO BID 12/02/17 12/02/17 Unknown History Fenofibrate 160 mg PO DAILY 12/02/17 12/02/17 Unknown History Gemfibrozil [Lopid] 600 mg PO BID 12/02/17 12/02/17 Unknown History Mirtazapine [Remeron] 30 mg PO QHS 12/02/17 12/02/17 Unknown History Pantoprazole [Protonix TAB] 40 mg PO QDAY 12/02/17 12/02/17 Unknown History Quetiapine Fumarate [QUEtiapine 300 mg PO QDAY 12/02/17 12/02/17 Unknown History Fumarate] traZODone [Desyrel] 100 mg PO QHS 12/02/17 12/02/17 Unknown History Exam - Constitutional Vitals: Temp Pulse Resp BP Pulse Ox 97.5 F L 78 16 120/66 99 12/02/17 15:56 12/02/17 15:56 12/02/17 15:56 12/02/17 15:56 12/02/17 15:56 Results - Labs CBC & Chem 7: 12/02/17 11:20 12/02/17 11:20 Labs: Laboratory Last Values WBC 5.1 K/mm3 (4.5-11.0) 12/02/17 11:20 RBC 4.26 M/mm3 (3.65-5.03) 12/02/17 11:20 Hgb 13.7 gm/dl (11.8-15.2) 12/02/17 11:20 Hct 39.7 % (35.5-45.6) 12/02/17 11:20 MCV 93 fl (84-94) 12/02/17 11:20 MCH 32 pg (28-32) 12/02/17 11:20 MCHC 34 % (32-34) 12/02/17 11:20 RDW 15.3 % (13.2-15.2) H 12/02/17 11:20 Plt Count 254 K/mm3 (140-440) 12/02/17 11:20 Lymph % (Auto) 29.4 % (13.4-35.0) 12/02/17 11:20 [place] % (Auto) 10.6 % (0.0-7.3) H 12/02/17 11:20 Eos % (Auto) 2.1 % (0.0-4.3) 12/02/17 11:20 Baso % (Auto) 0.6 % (0.0-1.8) 12/02/17 11:20 Lymph # 1.5 K/mm3 (1.2-5.4) 12/02/17 11:20 [place] # 0.5 K/mm3 (0.0-0.8) 12/02/17 11:20 Eos # 0.1 K/mm3 (0.0-0.4) 12/02/17 11:20 Baso # 0.0 K/mm3 (0.0-0.1) 12/02/17 11:20 Seg Neutrophils % 57.3 % (40.0-70.0) 12/02/17 11:20 Seg Neutrophils # 2.9 K/mm3 (1.8-7.7) 12/02/17 11:20 PT 14.1 Sec. (12.2-14.9) 12/02/17 11:20 INR 1.04 (0.87-1.13) 12/02/17 11:20 D-Dimer 212.55 ng/mlDDU (0-234) 12/02/17 11:20 Sodium 136 mmol/L (137-145) L 12/02/17 11:20 Potassium 5.5 mmol/L (3.6-5.0) H 12/02/17 11:20 Chloride 101.4 mmol/L (98-107) 12/02/17 11:20 Carbon Dioxide 22 mmol/L (22-30) 12/02/17 11:20 Anion Gap 18 mmol/L 12/02/17 11:20 BUN 22 mg/dL (9-20) H 12/02/17 11:20 Creatinine 1.4 mg/dL (0.8-1.5) 12/02/17 11:20 Estimated GFR 51 ml/min 12/02/17 11:20 BUN/Creatinine Ratio 16 % 12/02/17 11:20 Glucose 112 mg/dL (75-100) H 12/02/17 11:20 Calcium 9.1 mg/dL (8.4-10.2) 12/02/17 11:20 Magnesium 2.20 mg/dL (1.7-2.3) 12/02/17 11:20 Total Bilirubin 0.60 mg/dL (0.1-1.2) 12/02/17 11:20 AST 22 units/L (5-40) 12/02/17 11:20 ALT 13 units/L (7-56) 12/02/17 11:20 Alkaline Phosphatase 52 units/L (35-129) 12/02/17 11:20 Total Creatine Kinase 61 units/L (55-170) 12/02/17 11:20 Troponin T < 0.010 ng/mL (0.00-0.029) 12/02/17 11:20 Total Protein 7.6 g/dL (6.3-8.2) 12/02/17 11:20 Albumin 4.4 g/dL (3.9-5) 12/02/17 11:20 Albumin/Globulin Ratio 1.4 % 12/02/17 11:20 Salicylates < 0.3 mg/dL (2.8-20.0) L 12/02/17 11:20 Acetaminophen < 5.0 ug/mL (10.0-30.0) L 12/02/17 11:20
[2017-12-02] MEDS ORDERED: ZOFRAN IV PRN (19:35)
[2017-12-02] MEDS ORDERED: TYLENOL PO PRN (19:35)
[2017-12-02] MEDS ORDERED: SODIUM CHLORIDE FLUSH SYRINGE 10 ML IV PRN (19:35)
[2017-12-02] MEDS ORDERED: MORPHINE IV PRN (19:36)
[2017-12-02] MEDS ORDERED: AMBIEN PO PRN (19:36)
[2017-12-02] MEDS ORDERED: NON-FORMULARY (Quetiapine Fumarate [Quetiapine Fumarate] 300 MG) PO SCH (19:45)
[2017-12-02] MEDS ORDERED: NON-FORMULARY (Amlodipine Besylate [Norvasc] 2.5 MG) PO SCH (19:45)
[2017-12-02] MEDS ORDERED: NON-FORMULARY (Fenofibrate [Fenofibrate] 160 MG) PO SCH (19:45)
[2017-12-02] MEDS ORDERED: NACL 0.9% 1000 ML 1,000 ML IV SCH (20:00)
[2017-12-02] MEDS ORDERED: LOPID PO SCH (22:00)
[2017-12-02] MEDS ORDERED: PEPCID PO SCH (22:00)
[2017-12-02] MEDS: SODIUM CHLORIDE FLUSH SYRINGE 10 ML IV SCH (22:00)
[2017-12-02] MEDS: REMERON PO SCH (22:45)
[2017-12-02] MEDS: COGENTIN PO SCH (22:46)
[2017-12-02] MEDS: COREG PO SCH (22:46)
[2017-12-02] MEDS: NORVASC PO SCH (22:46)
[2017-12-02] MEDS: DESYREL PO SCH (22:51)
[2017-12-02] MEDS: PROTONIX PO SCH (22:51)
[2017-12-03] MEDS: PERCOCET 5/325 PO PRN (00:22)
[2017-12-03 05:55] LABS: Basophils % (Auto) 0.5 % (0.0-1.8); Eosinophils # (Auto) 0.1 K/mm3 (0.0-0.4); Eosinophils % (Auto) 2.8 % (0.0-4.3); Hematocrit 35.5 % (35.5-45.6); Hemoglobin 12.3 gm/dl (11.8-15.2); Lymphocytes # (Auto) 2.4 K/mm3 (1.2-5.4); Lymphocytes % (Auto) 45.7 % (13.4-35.0); Mean Corpuscular HGB Conc 35 % (32-34); Mean Corpuscular Hemoglobin 32 pg (28-32); Mean Corpuscular Volume 93 fl (84-94); Monocytes # (Auto) 0.6 K/mm3 (0.0-0.8); Monocytes % (Auto) 12.5 % (0.0-7.3); Platelet Count 213 K/mm3 (140-440); Red Blood Count 3.81 M/mm3 (3.65-5.03); Red Cell Distribution Width 14.8 % (13.2-15.2)
--- NOTE | 2017-12-03 06:07 | Event Note ---
Date: 12/02/17 See dictated H/p in reports Syncope/Chest pain work up
[2017-12-03 06:27] LABS: Calcium 8.5 mg/dL (8.4-10.2)
--- NOTE | 2017-12-03 07:22 | History and Physical Report ---
CHIEF COMPLAINT: The patient was walking and passed out this afternoon. HISTORY OF PRESENT ILLNESS: A 62-year-old male with history of hypertension, chronic kidney disease and psychiatric problems including bipolar disorder, was in good health and was walking when he passed out. The patient did not have any shortness of breath or neck pain or any headache. The patient also indicated retrosternal chest pain, which is resolved. No recent travel. No risk for pulmonary embolism or DVT. No diaphoresis, no palpitations, no shortness of breath. Loss of consciousness was very brief and single episode. Back to normal. PAST MEDICAL HISTORY: As mentioned, hypertension, chronic kidney disease, psychiatric treatment including bipolar disorder, depression and schizoaffective disorder. PAST SURGICAL HISTORY: Small lump removed from the right arm and tonsillectomy. SOCIAL HISTORY: Former smoker. No alcohol, no recreational drugs. FAMILY HISTORY: Significant for hypertension. ADDITIONAL MEDICAL HISTORY: BPH and GERD. REVIEW OF SYSTEMS: Significant for syncope and retrosternal chest pain. Otherwise, review of systems is essentially negative. A 14-point review of systems done. PHYSICAL EXAMINATION: GENERAL: Elderly male, cooperative during examination. VITAL SIGNS: Blood pressure was 149/82, temperature 97.3, pulse is 78, respirations are 18. Orthostatics were positive. The patient's blood pressure is 126/65 lying down, sitting was 118/68 and standing was 119/59. There is a drop of 7 points on the systolic blood pressure. HEENT: Unremarkable. Pupils equal and reactive. NECK: Supple, no lymphadenopathy, no thyromegaly. LUNGS: Clear to auscultation and percussion. Good air entry. CARDIOVASCULAR SYSTEM: S1, S2 heard. No gallop, no murmur, no rub. Apical impulse in left fifth intercostal space and midclavicular line. ABDOMEN: Soft and benign. No hepatosplenomegaly. No guarding, no rigidity. Hernial orifices are normal. EXTREMITIES: Good pedal pulses. No pedal edema. CENTRAL NERVOUS SYSTEM: Alert and oriented x 4, nonfocal exam. SKIN: Normal. LABORATORY DATA: Hemoglobin is 13.7. Hematocrit is 39.7. Platelet count is 254,000. White count is 5100. Sodium is 136, slightly low. Potassium is 5.5, BUN and creatinine is 22 and 1.4, glucose is 112. LFTs are normal. Salicylates and acetaminophen are negligible. DIAGNOSTIC DATA: EKG shows normal sinus rhythm. Normal intervals. X-ray is negative for any acute disease. ASSESSMENT AND PLAN: 1. Chest pain, rule out myocardial infarction protocol. Lexiscan in the morning. Serial cardiac enzymes. Differential diagnosis of gastroesophageal reflux disease and costochondritis. Costochondritis unlikely. No chest wall tenderness. 2. Syncope. Syncope workup including Lexiscan, carotid duplex scan and echocardiogram. 3. Chronic kidney disease. Creatinine is normal. May have had renal insufficiency in the past. 4. Hypertension. Continue Coreg and amlodipine. 5. Gastroesophageal reflux disease. Continue pantoprazole 40 mg once a day. 6. Bipolar disorder. Continue Seroquel 300 mg once a day. 7. Hyperlipidemia. Continue fenofibrate. Gemfibrozil was stopped. 8. Depression. Continue trazodone 100 mg p.o. at bedtime. 9. Deep venous thrombosis prophylaxis, Lovenox 40 mg subcutaneous daily. ADDENDUM 1. Hyperkalemia, treated with Kayexalate. Recheck the potassium. 2. Hyponatremia, mild, should correct with IV fluids. JOB# [id number] JOB# [id number] VSM/NTS
[2017-12-03] MEDS ORDERED: LEXISCAN IV ONE ×2 (08:51→08:57)
--- NOTE | 2017-12-03 09:13 | History and Physical Report ---
ADDENDUM 1. Hyperkalemia, treated with Kayexalate. Recheck the potassium. 2. Hyponatremia, mild, should correct with IV fluids. JOB# [id number] VSM/NTS
[2017-12-03] MEDS: COREG PO SCH ×2 (11:34→22:43)
[2017-12-03] MEDS: NORVASC PO SCH (11:34)
[2017-12-03] MEDS: PROTONIX PO SCH (11:35)
--- NOTE | 2017-12-03 13:05 | Treadmill Report ---
NUCLEAR PERFUSION STUDY REASON FOR STUDY: Chest pain. IMAGING PROTOCOL: Single isotope used documented as single isotope protocol. IMAGING RESULTS: Normal cavity size from stress to rest. Normal distribution of radionuclide in the anterior, inferior, septal, lateral, and apical regions. Gated SPECT, EF greater than 65% with no wall motion abnormality. The patient infused Lexiscan with no EKG changes. SUMMARY: 1. Negative Lexiscan EKG. 2. Normal rest and stress myocardial perfusion scan. No significant ischemia. No wall motion abnormality. Gated SPECT, EF greater than 65%. JOB# [id number] YENNIFER/DELBERT
--- NOTE | 2017-12-03 16:02 | Progress Note ---
Assessment and Plan Assessment and plan: 62 year old -German male with past medical history significant for hypertension, CKD, bipolar disorder presented to the emergency department with complaints of he passed out yesterday. CT head was negative Cardiac stress test negative for acute ischemia Carotid Doppler pending Hypertension - We'll continue home medications Bipolar disorder Continue home medications CKD - Currently creatinine is normal DVT prophylaxis - On Lovenox Disposition - We'll monitor today, get carotid Doppler and possible discharge tomorrow. History Interval history: Patient was seen and evaluated this morning, patient denied any chest pain. Patient said he didn't passed out after he admitted to the hospital. Hospitalist Physical - Physical exam Narrative exam: Not in cardiopulmonary distress. The patient is obese. Vital signs as documented. Head exam is unremarkable. No scleral icterus . Neck is without jugular venous distension, thyromegaly, or carotid bruits. Lungs are clear to auscultation. Cardiac exam reveals regular rate and Rhythm. First and second heart sounds normal. No murmurs, rubs or gallops. Abdominal exam reveals normal bowel sounds, no masses, no organomegaly and no aortic enlargement. Extremities are nonedematous and both femoral and pedal pulses are normal. GROUP MARKETING VP: Alert and oriented 3. No focal weakness. - Constitutional Vitals: Temp Pulse Resp BP Pulse Ox 98.2 F 88 20 154/76 97 12/03/17 11:57 12/03/17 11:57 12/03/17 11:57 12/03/17 11:57 12/03/17 11:57 Results - Labs CBC & Chem 7: 12/03/17 04:57 12/03/17 04:57 Labs: Laboratory Last Values WBC 5.2 K/mm3 (4.5-11.0) 12/03/17 04:57 RBC 3.81 M/mm3 (3.65-5.03) 12/03/17 04:57 Hgb 12.3 gm/dl (11.8-15.2) 12/03/17 04:57 Hct 35.5 % (35.5-45.6) 12/03/17 04:57 MCV 93 fl (84-94) 12/03/17 04:57 MCH 32 pg (28-32) 12/03/17 04:57 MCHC 35 % (32-34) H 12/03/17 04:57 RDW 14.8 % (13.2-15.2) 12/03/17 04:57 Plt Count 213 K/mm3 (140-440) 12/03/17 04:57 Lymph % (Auto) 45.7 % (13.4-35.0) H 12/03/17 04:57 [place]lan % (Auto) 12.5 % (0.0-7.3) H 12/03/17 04:57 Eos % (Auto) 2.8 % (0.0-4.3) 12/03/17 04:57 Baso % (Auto) 0.5 % (0.0-1.8) 12/03/17 04:57 Lymph # 2.4 K/mm3 (1.2-5.4) 12/03/17 04:57 [place]lan # 0.6 K/mm3 (0.0-0.8) 12/03/17 04:57 Eos # 0.1 K/mm3 (0.0-0.4) 12/03/17 04:57 Baso # 0.0 K/mm3 (0.0-0.1) 12/03/17 04:57 Seg Neutrophils % 38.5 % (40.0-70.0) L 12/03/17 04:57 Seg Neutrophils # 2.0 K/mm3 (1.8-7.7) 12/03/17 04:57 PT 14.1 Sec. (12.2-14.9) 12/02/17 11:20 INR 1.04 (0.87-1.13) 12/02/17 11:20 D-Dimer 212.55 ng/mlDDU (0-234) 12/02/17 11:20 Sodium 141 mmol/L (137-145) 12/03/17 04:57 Potassium 4.1 mmol/L (3.6-5.0) D 12/03/17 04:57 Chloride 106.6 mmol/L (98-107) 12/03/17 04:57 Carbon Dioxide 20 mmol/L (22-30) L 12/03/17 04:57 Anion Gap 19 mmol/L 12/03/17 04:57 BUN 20 mg/dL (9-20) 12/03/17 04:57 Creatinine 1.3 mg/dL (0.8-1.5) 12/03/17 04:57 Estimated GFR 56 ml/min 12/03/17 04:57 BUN/Creatinine Ratio 15 % 12/03/17 04:57 Glucose 114 mg/dL (75-100) H 12/03/17 04:57 Hemoglobin A1c 5.0 % (4-6) 12/02/17 20:13 Calcium 8.5 mg/dL (8.4-10.2) 12/03/17 04:57 Magnesium 2.20 mg/dL (1.7-2.3) 12/02/17 11:20 Total Bilirubin 0.30 mg/dL (0.1-1.2) 12/03/17 04:57 AST 24 units/L (5-40) 12/03/17 04:57 ALT 11 units/L (7-56) 12/03/17 04:57 Alkaline Phosphatase 45 units/L (35-129) 12/03/17 04:57 Total Creatine Kinase 61 units/L (55-170) 12/02/17 11:20 Troponin T < 0.010 ng/mL (0.00-0.029) 12/03/17 01:29 Total Protein 6.6 g/dL (6.3-8.2) 12/03/17 04:57 Albumin 4.0 g/dL (3.9-5) 12/03/17 04:57 Albumin/Globulin Ratio 1.5 % 12/03/17 04:57 Salicylates < 0.3 mg/dL (2.8-20.0) L 12/02/17 11:20 Acetaminophen < 5.0 ug/mL (10.0-30.0) L 12/02/17 11:20
[2017-12-03] MEDS ORDERED: LOVENOX SUB-Q SCH (22:00)
[2017-12-03] MEDS: REMERON PO SCH (22:42)
[2017-12-03] MEDS: DESYREL PO SCH (22:42)
[2017-12-03] MEDS: COGENTIN PO SCH (22:42)
[2017-12-03] MEDS: SODIUM CHLORIDE FLUSH SYRINGE 10 ML IV SCH ×2 (22:45)
[2017-12-04] MEDS: PERCOCET 5/325 PO PRN ×2 (08:30→13:39)
--- NOTE | 2017-12-04 11:13 | Discharge Summary ---
Providers - Providers Date of Admission: 12/02/17 14:32 Attending physician: CHET SAENZ MD Primary care physician: ENDING MACHINE OPERATOR Hospitalization Reason for admission: syncope Condition: Good Disposition: DC-01 TO HOME OR SELFCARE Time spent for discharge: 34 minutes - Discharge Diagnoses (1) Chest pain Status: Acute (2) Syncope Status: Acute Core Measure Documentation - Palliative Care Palliative Care/ Comfort Measures: Not Applicable - Core Measures Any of the following diagnoses?: none Exam - Physical Exam Narrative exam: Not in cardiopulmonary distress. The patient is obese. Vital signs as documented. Head exam is unremarkable. No scleral icterus . Neck is without jugular venous distension, thyromegaly, or carotid bruits. Lungs are clear to auscultation. Cardiac exam reveals regular rate and Rhythm. First and second heart sounds normal. No murmurs, rubs or gallops. Abdominal exam reveals normal bowel sounds, no masses, no organomegaly and no aortic enlargement. Extremities are nonedematous and both femoral and pedal pulses are normal. AUTOMOBILE SERVICE WRITER: Alert and oriented 3. No focal weakness. - Constitutional Vitals: Temp Pulse Resp BP Pulse Ox 98.0 F 71 20 117/66 98 12/04/17 05:06 12/04/17 05:06 12/04/17 05:06 12/04/17 05:06 12/04/17 05:06 Plan Activity: no restrictions Weight Bearing Status: Full Weight Bearing Diet: regular Additional Instructions: Follow up at [facility] in 1-2 weeks Follow up with: PRIMARY CAREMD [Primary Care Provider] - 3-5 Days Prescriptions: Aspirin [Aspirin BABY CHEW TAB] 81 mg PO QDAY #30 tab.chew
[2017-12-04] MEDS: NORVASC PO SCH (11:56)
[2017-12-04] MEDS: COREG PO SCH (11:56)
[2017-12-04] MEDS: PROTONIX PO SCH (11:56)
[2017-12-04] MEDS: SODIUM CHLORIDE FLUSH SYRINGE 10 ML IV SCH (11:56)
[2017-12-04 13:25] VITALS: BP 117/57
--- NOTE | 2017-12-04 15:11 | Query- Chest Pain ---
Bernardo Mart____Daniel Date:__12/04/2017 Jayme/ROMEL:___Carmen Phone#:___[phone] Exercise your independent professional judgment when responding to query. Questions asked do not imply a particular answer is desired or expected. We greatly appreciate your clarification on this issue. Clinical Documentation States: 62 Year old male was admitted on 12/02/2017 for evaluation of unprovoked syncope. He indicates central chest pain which is now resolved. He denies DVT and pulmonary embolus risk factors. He complains of mild resolved chest pain which did not radiate where, exacerbating or relieving factors. He also complains of mild occipital headache where he fell. The discharge summary states "- Discharge Diagnoses (1) Chest pain Status: Acute." Please document the etiology of Chest Pain: [ ] Myocardial Infarction [ ] Pneumonia [ ] Mediastinitis [x ] Costochondritis [ ] Pulmonary Embolism [ ] Coronary Artery Disease [ ] GERD [ ] Other: [ ] Comment/Explanation: Present on Admission: [ x] Yes (Y) [ ] Clinically undeterminable (W) [ ] No(N) Please document response in your Progress Notes and/or Discharge Summary and indicate if the condition was present on admission. DEJON
--- NOTE | 2017-12-04 15:15 | Query- Syncope ---
Bernardo Mart__Gutierrez Date:__12/04/2017 Therapy Site Coordinator/ROMEL:__Carmen Phone#:___[phone] Exercise your independent professional judgment when responding to query. Questions asked do not imply a particular answer is desired or expected. We greatly appreciate your clarification on this issue. Clinical Documentation States: 62 Year old male was admitted on 12/02/2017 for evaluation of unprovoked syncope. Patient reports that he was walking and then passed out. He reports that prior to the event he did not have headache, neck pain, abdominal pain, shortness of breath. The Discharge summary states "- Discharge Diagnoses (2) Syncope Status: Acute." Please specify the cause as: [ ] Autonomic Imbalance [ ] Dialysis disequilibrium syndrome [ ] Hypotension [ ] Shock [ ] Psychogenic [ x] Unable to Determine [ ] Other: Present on Admission: [x ] Yes (Y) [ ] Clinically undeterminable (W) [ ] No (N) Please also document response in your Progress Notes and/or Discharge Summary and indicate if the condition was present on admission. DEJON
[2017-12-05] MEDS ORDERED: PNEUMOVAX 23 IM ONE (12:00)
== END 2017-12-04 16:21 | disposition home or self-care (01) | DRG 206 ==
LOC: ED 09:50 → 4A 14:32
PROVIDERS: ADMIT Internal Medicine; ATTEND Internal Medicine
DX: M94.0 Chondrocostal junction syndrome [Tietze] (principal); E87.1 Hypo-osmolality and hyponatremia; R55 Syncope and collapse; R07.9 Chest pain, unspecified; I12.9 Hypertensive chronic kidney disease with stage 1 through stage 4 chronic kidney disease, or unspecified chronic kidney disease; N18.9 Chronic kidney disease, unspecified; F31.9 Bipolar disorder, unspecified; F25.9 Schizoaffective disorder, unspecified; N40.0 Benign prostatic hyperplasia without lower urinary tract symptoms; K21.9 Gastro-esophageal reflux disease without esophagitis; E78.5 Hyperlipidemia, unspecified; E87.5 Hyperkalemia; Z86.73 Personal history of transient ischemic attack (TIA), and cerebral infarction without residual deficits; Z82.49 Family history of ischemic heart disease and other diseases of the circulatory system
CPT/HCPCS: 36415; 70450; 71045; 71275; 78452; 80053; 80320; 82550; 83036; 83735; 84484; 85025; 85379; 85610; 93005; 93010; 93017; 93306; 93880; 96360; A9502; G0480; J1650; J2785; J7030; J7040; Q9967

== ENCOUNTER 2017-12-15 20:01 | Emergency (ER) | payer OTHER, MEDICARE ==
[2017-12-15 20:17] VITALS: BP 113/74
[2017-12-15 21:03] LABS: Hematocrit 41.1 % (35.5-45.6); Hemoglobin 14.3 gm/dl (11.8-15.2); Mean Corpuscular HGB Conc 35 % (32-34); Mean Corpuscular Hemoglobin 32 pg (28-32); Mean Corpuscular Volume 93 fl (84-94); Platelet Count 255 K/mm3 (140-440); Red Blood Count 4.44 M/mm3 (3.65-5.03)
[2017-12-15 21:11] LABS: Bacteria,Urine 1+ /HPF (Negative); Bilirubin,Urine NEG (Negative); Blood,Urine MOD (Negative); Mucus,Urine 3+ /HPF
[2017-12-15 21:13] LABS: Color,Urine Orange (Yellow); Protein,Urine >500 mg/dL (Negative)
[2017-12-15 21:17] LABS: Calcium 9.2 mg/dL (8.4-10.2)
--- NOTE | 2017-12-15 23:07 | Emergency Department Report ---
HPI - General Chief Complaint: Urogenital-Male Time Seen by Provider: 12/15/17 22:36 - HPI HPI: Room 25 The patient is a 62-year-old male presenting with a chief complaint of Walsh bag breakage. The patient states he has a history of an enlarged prostate and had a Walsh catheter placed 2 days ago. The patient states he comes to the emergency department today because he noticed that the drainage valve on the leg bag was broken causing urine to leak. The patient has taped up the leg bag. Patient denies any other complaints Location: Leg bag Duration: 1 day Quality: Broken Severity: Moderate Modifying factors: [see above] Context: [see above] Mode of transportation: [not driving] ED Past Medical Hx - Past Medical History Hx Hypertension: Yes Hx Renal Disease: Yes (CKD) Hx Psychiatric Treatment: Yes (bipolar / depression/schizoaffective) Additional medical history: HIGH CHOLESTEROL. TIA. ENLARGED PROSTATE - Surgical History Additional Surgical History: KNOT REMOVED UNDER RIGHT ARM "CAT SCRATCH FEVER ", tonsilectomy - Family History Family history: no significant - Social History Smoking Status: Former Smoker (none 10 years) Substance Use Type: None - Medications Home Medications: Home Medications Medication Instructions Recorded Confirmed Last Taken Type Amlodipine Besylate [Norvasc] 2.5 mg PO DAILY 12/02/17 12/02/17 Unknown History Benztropine [Cogentin] 2 mg PO QHS 12/02/17 12/02/17 Unknown History Carvedilol [Coreg] 6.25 mg PO BID 12/02/17 12/02/17 Unknown History Fenofibrate 160 mg PO DAILY 12/02/17 12/02/17 Unknown History Gemfibrozil [Lopid] 600 mg PO BID 12/02/17 12/02/17 Unknown History Mirtazapine [Remeron] 30 mg PO QHS 12/02/17 12/02/17 Unknown History Pantoprazole [Protonix TAB] 40 mg PO QDAY 12/02/17 12/02/17 Unknown History Quetiapine Fumarate [QUEtiapine 300 mg PO QDAY 12/02/17 12/02/17 Unknown History Fumarate] traZODone [Desyrel] 100 mg PO QHS 12/02/17 12/02/17 Unknown History Aspirin [Aspirin BABY CHEW TAB] 81 mg PO QDAY #30 tab.chew 12/04/17 Unknown Rx levoFLOXacin [Levaquin TAB] 500 mg PO QDAY #7 tablet 12/15/17 Unknown Rx ED Review of Systems ROS: Stated complaint: PROBLEMS WITH CATH Other details as noted in HPI Constitutional: no symptoms reported Eyes: denies: eye pain ENT: denies: throat pain Respiratory: no symptoms reported Cardiovascular: denies: chest pain Endocrine: no symptoms reported Gastrointestinal: denies: abdominal pain Genitourinary: as per HPI Musculoskeletal: denies: back pain Neurological: denies: headache Physical Exam - Physical Exam Vital Signs: Vital Signs 12/15/17 20:12 Temperature 98.4 F Pulse Rate 101 H Respiratory 20 Rate Blood Pressure 113/74 O2 Sat by Pulse 95 Oximetry Physical Exam: GENERAL: The patient is well-developed well-nourished male lying on stretcher not appearing to be in acute distress. [] HEENT: Normocephalic. Atraumatic. Extraocular motions are intact. Patient has moist mucous membranes. NECK: Trachea midline CHEST/LUNGS: Clear to auscultation. There is no respiratory distress noted. HEART/CARDIOVASCULAR: Regular. There is no tachycardia. There is no gallop rub or murmur. ABDOMEN: Abdomen is soft, nontender. Patient has normal bowel sounds. There is no abdominal distention. SKIN: There is no diaphoresis. NEURO: The patient is awake, alert, and oriented. The patient is cooperative. The patient has normal speech and gait. MUSCULOSKELETAL: There is no evidence of acute injury. ED Course Vital Signs 12/15/17 20:12 Temperature 98.4 F Pulse Rate 101 H Respiratory 20 Rate Blood Pressure 113/74 O2 Sat by Pulse 95 Oximetry ED Medical Decision Making - Lab Data Result diagrams: 12/15/17 20:23 12/15/17 20:23 Laboratory Tests 12/15/17 12/15/17 12/15/17 20:23 20:23 20:23 WBC 10.0 RBC 4.44 Hgb 14.3 Hct 41.1 MCV 93 MCH 32 MCHC 35 H RDW 14.0 Plt Count 255 Sodium 134 L Potassium 4.0 Chloride 97.3 L Carbon Dioxide 19 L Anion Gap 22 BUN 20 Creatinine 1.5 Estimated GFR 47 BUN/Creatinine Ratio 13 Glucose 143 H Calcium 9.2 Urine Color [place] Urine Turbidity Slightly-cloudy Urine pH 5.0 Ur Specific [place] 1.023 Urine Protein >500 Urine Glucose (UA) Neg Urine Ketones Neg Urine Blood Mod Urine Nitrite Pos Urine Bilirubin Neg Urine Urobilinogen 4.0 Ur Leukocyte Esterase Neg Urine WBC (Auto) 83.0 H Urine RBC (Auto) 160.0 Urine Bacteria (Auto) 1+ Urine Mucus 3+ - Differential Diagnosis UTI, Walsh bag malfunction Critical care attestation.: If time is entered above; I have spent that time in minutes in the direct care of this critically ill patient, excluding procedure time. ED Disposition Clinical Impression: UTI (urinary tract infection), Encounter for evaluation of Walsh catheter Disposition: TO HOME OR SELFCARE Is pt being admited?: No Does the pt Need Aspirin: No Condition: Stable Instructions: Urinary Leg Bag (GEN) Additional Instructions: Return to the emergency department immediately should you develop worsening symptoms, fever, inability to tolerate food or liquid or any other concerns. Prescriptions: levoFLOXacin [Levaquin TAB] 500 mg PO QDAY #7 tablet Referrals: PRIMARY CAREMD [Primary Care Provider] - 3-5 Days LISA BOURNE MD [Staff Physician] - 3-5 Days (Dr. Bourne is a urologist. Please follow up with him or your urologist for further evaluation) Time of Disposition: 23:08
== END 2017-12-15 23:48 | disposition home or self-care (01) ==
LOC: ED 20:01
DX: N39.0 Urinary tract infection, site not specified (principal); Z46.6 Encounter for fitting and adjustment of urinary device; I12.9 Hypertensive chronic kidney disease with stage 1 through stage 4 chronic kidney disease, or unspecified chronic kidney disease; N18.9 Chronic kidney disease, unspecified; F31.9 Bipolar disorder, unspecified; F20.9 Schizophrenia, unspecified; E78.00 Pure hypercholesterolemia, unspecified; Z86.73 Personal history of transient ischemic attack (TIA), and cerebral infarction without residual deficits; Z90.89 Acquired absence of other organs; Z87.891 Personal history of nicotine dependence; Z79.82 Long term (current) use of aspirin
CPT/HCPCS: 36415; 80048; 81001; 85027; 99283

== ENCOUNTER 2018-05-07 00:21 | Emergency (ER) | payer MEDICARE ==
[2018-05-07 00:31] VITALS: BP 164/91
[2018-05-07 00:55] LABS: Basophils % (Auto) 0.7 % (0.0-1.8); Eosinophils # (Auto) 0.2 K/mm3 (0.0-0.4); Eosinophils % (Auto) 2.9 % (0.0-4.3); Hematocrit 43.4 % (35.5-45.6); Hemoglobin 14.8 gm/dl (11.8-15.2); Lymphocytes # (Auto) 2.8 K/mm3 (1.2-5.4); Lymphocytes % (Auto) 42.1 % (13.4-35.0); Mean Corpuscular HGB Conc 34 % (32-34); Mean Corpuscular Volume 96 fl (84-94); Monocytes # (Auto) 0.6 K/mm3 (0.0-0.8); Monocytes % (Auto) 9.7 % (0.0-7.3); Platelet Count 212 K/mm3 (140-440); Red Blood Count 4.52 M/mm3 (3.65-5.03); Red Cell Distribution Width 14.8 % (13.2-15.2)
[2018-05-07 01:14] LABS: BUN/Creatinine Ratio 12; Blood Urea Nitrogen 11 mg/dL (9-20); Calcium 8.8 mg/dL (8.4-10.2); Hemolysis Index 17
--- NOTE | 2018-05-07 01:18 | Cat Scan Report ---
FINAL REPORT EXAM: CT HEAD/BRAIN WO CON HISTORY: HEADACHE TECHNIQUE: Routine axial imaging was obtained of the brain without IV contrast. Comparison is made t o the study of 12/02/2017. FINDINGS: There is no evidence of acute stroke or hemorrhage. The ventricular system is appropriate in size and is symmetric. The basal cisterns appear normal. The visualized sinuses are clear. The mastoid air ce lls are well pneumatized. The calvarium appears intact. IMPRESSION: No acute intracranial process.
--- NOTE | 2018-05-07 01:26 | Emergency Department Report ---
ED Headache HPI - General Chief Complaint: Headache Stated Complaint: HEADACHE Time Seen by Provider: 05/07/18 01:25 Source: patient, family Exam Limitations: no limitations - History of Present Illness Initial Comments: This is a 63-year-old male here for that he has a headache located in the front of his head and he feels like somebody is clamping down on his head. Pain is 1 0/10 and is been on and off for a while. Patient said he saw his primary care doctor and his blood pressure was normal and he is on blood pressure medication. He said he also took his blood pressure at home this evening and blood pressure was 2 or 3/102 so he came to the emergency room. Blood pressure in triage is 164/94 and patient's that he took Tylenol earlier this evening after blood pressure was taken. His reported that he is always complained of a headache and he is being addressed by primary care doctor but he never had a CT scan. No alleviating or exacerbating factors. Denies any neck pain or stiffness, nausea or vomiting or numbness or tingling to extremities. Denies any chest pain or shortness of breath. Patient reports that he has a history of CK D, high cholesterol, TIA and bipolar depression and schizoaffective disorder. Denies any fever or chills. Timing/Duration: increasing, waxing and waning Quality: severe, achy Head Injury Location: frontal Recent Head Trauma: frequent headaches Modifying Factors: improves with: other (none) Associated Symptoms: denies: confusion, fatigue, facial pain, fever/chills, f lushing, loss of consciousness, nausea/vomiting, nasal congestion, nasal drainage, numbness in legs/feet, rash, seizures, sinus infection, stiff neck, vision changes, weakness Allergies/Adverse Reactions: Allergies No Known Allergies Allergy (Verified 12/02/17 10:17) Home Medications: Ambulatory Orders Amlodipine Besylate [Norvasc] 2.5 mg PO DAILY 12/02/17 Benztropine [Cogentin] 2 mg PO QHS 12/02/17 Carvedilol [Coreg] 6.25 mg PO BID 12/02/17 Fenofibrate 160 mg PO DAILY 12/02/17 Gemfibrozil [Lopid] 600 mg PO BID 12/02/17 Mirtazapine [Remeron] 30 mg PO QHS 12/02/17 Pantoprazole [Protonix TAB] 40 mg PO QDAY 12/02/17 Quetiapine Fumarate [QUEtiapine Fumarate] 300 mg PO QDAY 12/02/17 traZODone [Desyrel] 100 mg PO QHS 12/02/17 Aspirin [Aspirin BABY CHEW TAB] 81 mg PO QDAY #30 tab.chew 12/04/17 levoFLOXacin [Levaquin TAB] 500 mg PO QDAY #7 tablet 12/15/17 traMADol [Ultram 50 MG tab] 50 mg PO Q6HR PRN #12 tablet 05/07/18 ED Review of Systems ROS: Stated complaint: HEADACHE Other details as noted in HPI Constitutional: denies: chills, fever Eyes: denies: vision change ENT: denies: ear pain, throat pain, dental pain, hearing loss, epistaxis, congestion Respiratory: denies: cough, shortness of breath, wheezing Cardiovascular: denies: chest pain, palpitations, dyspnea on exertion, edema, syncope Gastrointestinal: denies: abdominal pain, nausea, vomiting, diarrhea, constipation, hematemesis, melena, hematochezia Genitourinary: denies: urgency, dysuria, frequency, hematuria, discharge Musculoskeletal: denies: back pain, joint swelling, arthralgia, myalgia Skin: denies: rash Neurological: headache (and elevated blood pressure). denies: weakness, numbness, paresthesias, confusion, abnormal gait, vertigo Psychiatric: denies: anxiety ED Past Medical Hx - Past Medical History Previous Medical History?: Yes Hx Hypertension: Yes (denies at this time) Hx Renal Disease: Yes (CKD) Hx Psychiatric Treatment: Yes (bipolar / depression/schizoaffective) Additional medical history: HIGH CHOLESTEROL. TIA. ENLARGED PROSTATE - Surgical History Past Surgical History?: Yes Additional Surgical History: KNOT REMOVED UNDER RIGHT ARM "CAT SCRATCH FEVER ", tonsilectomy - Family History Family history: hypertension - Social History Smoking Status: Never Smoker Substance Use Type: None - Medications Home Medications: Home Medications Medication Instructions Recorded Confirmed Last Taken Type Amlodipine Besylate [Norvasc] 2.5 mg PO DAILY 12/02/17 12/02/17 Unknown History Benztropine [Cogentin] 2 mg PO QHS 12/02/17 12/02/17 Unknown History Carvedilol [Coreg] 6.25 mg PO BID 12/02/17 12/02/17 Unknown History Fenofibrate 160 mg PO DAILY 12/02/17 12/02/17 Unknown History Gemfibrozil [Lopid] 600 mg PO BID 12/02/17 12/02/17 Unknown History Mirtazapine [Remeron] 30 mg PO QHS 12/02/17 12/02/17 Unknown History Pantoprazole [Protonix TAB] 40 mg PO QDAY 12/02/17 12/02/17 Unknown History Quetiapine Fumarate [QUEtiapine 300 mg PO QDAY 12/02/17 12/02/17 Unknown History Fumarate] traZODone [Desyrel] 100 mg PO QHS 12/02/17 12/02/17 Unknown History Aspirin [Aspirin BABY CHEW TAB] 81 mg PO QDAY #30 tab.chew 12/04/17 Unknown Rx levoFLOXacin [Levaquin TAB] 500 mg PO QDAY #7 tablet 12/15/17 Unknown Rx traMADol [Ultram 50 MG tab] 50 mg PO Q6HR PRN #12 tablet 05/07/18 Unknown Rx ED Physical Exam - General Limitations: No Limitations General appearance: alert, in no apparent distress - Head Head exam: Present: atraumatic, normocephalic, normal inspection, other (normal exam) - Expanded Head Exam Expanded Head exam: Absent: laceration, abrasion, contusion, hematoma, racoon eyes, jimenez's sign, general tenderness, tenderness of temporal artery, CSF rhinorrhea, CSF otorrhea - Eye Eye exam: Present: normal appearance, PERRL, EOMI. Absent: nystagmus, periorbital swelling, periorbital tenderness Pupils: Present: normal accommodation - ENT ENT exam: Present: normal exam, normal orophraynx, mucous membranes moist, TM's normal bilaterally, normal external ear exam - Neck Neck exam: Present: normal inspection, full ROM, other (no C-spine tenderness). Absent: tenderness, meningismus, lymphadenopathy - Respiratory Respiratory exam: Present: normal lung sounds bilaterally. Absent: respiratory distress, chest wall tenderness - Cardiovascular Cardiovascular Exam: Present: regular rate, normal rhythm, normal heart sounds - GI/Abdominal GI/Abdominal exam: Present: soft, normal bowel sounds. Absent: distended, tenderness, guarding, rebound, rigid, organomegaly, mass - Extremities Exam Extremities exam: Present: normal inspection, full ROM, normal capillary refill, other (No cce. + 2 pulses in all extremities, no neurovascular compromise). Absent: tenderness, pedal edema, joint swelling, calf tenderness - Back Exam Back exam: Present: normal inspection, full ROM, other (ambulates without any difficulties). Absent: tenderness, CVA tenderness (R), CVA tenderness (L), muscle spasm, paraspinal tenderness, vertebral tenderness, rash noted - Neurological Exam Neurological exam: Present: alert, oriented X3, normal gait, reflexes normal. Absent: motor sensory deficit - Expanded Neurological Exam Expanded Neurological exam: Absent: innattentive, memory loss-remote event, memory loss- recent event, ataxia, receptive aphasia, expressive aphasia, total aphasia, tremor, protecting the airway Patient oriented to: Present: person, place, time Speech: Present: fluid speech Cranial nerves: EOM's Intact: Normal, Gag Reflex: Normal, Tongue Deviation: Normal, Nystagmus: Normal, Facial Sensation: Normal Cerebellar function: Romberg: Normal Upper motor neuron: Pronator Drift: Normal, Sensory Extinction: Normal Sensory exam: Upper Extremity Light Touch: Normal, Upper Extremity Temperature: Normal, Lower Extremity Light Touch: Normal, Lower Extremity Temperature: Normal Motor strength exam: RUE: 5, LUE: 5, RLE: 5, LLE: 5 Best Eye Response ([place]): (4) open spontaneously Best Motor Response ([place]): (6) obeys commands Best Verbal Response ([place]): (5) oriented [place] Total: 15 - Psychiatric Psychiatric exam: Present: normal affect, normal mood - Skin Skin exam: Present: warm, dry, intact, normal color. Absent: rash ED Course Vital Signs 05/07/18 00:30 Temperature 97.7 F Pulse Rate 124 H Respiratory 20 Rate Blood Pressure 164/91 O2 Sat by Pulse 97 Oximetry - Reevaluation(s) Reevaluation #1: 05/07/18 02:31 given and Tylenol No. 3 2 tablets by mouth after CT scan resulted. Pain is better. His blood pressure is stable and he is on oxygen at 2 L nasal cannula. No change in neurological status Reevaluation #2: 05/07/18 04:32 Patient remained stable throughout ED course. Pains better. Blood pressure is better and his headache has decreased down to 06/01 ED Medical Decision Making - Lab Data Result diagrams: 05/07/18 00:44 05/07/18 00:44 Lab Results 05/07/18 05/07/18 Range/Units 00:44 00:44 WBC 6.6 (4.5-11.0) K/mm3 RBC 4.52 (3.65-5.03) M/mm3 Hgb 14.8 (11.8-15.2) gm/dl Hct 43.4 (35.5-45.6) % MCV 96 H (84-94) fl MCH 33 H (28-32) pg MCHC 34 (32-34) % RDW 14.8 (13.2-15.2) % Plt Count 212 (140-440) K/mm3 Lymph % (Auto) 42.1 H (13.4-35.0) % Cassia % (Auto) 9.7 H (0.0-7.3) % Eos % (Auto) 2.9 (0.0-4.3) % Baso % (Auto) 0.7 (0.0-1.8) % Lymph # 2.8 (1.2-5.4) K/mm3 Cassia # 0.6 (0.0-0.8) K/mm3 Eos # 0.2 (0.0-0.4) K/mm3 Baso # 0.0 (0.0-0.1) K/mm3 Seg Neutrophils % 44.6 (40.0-70.0) % Seg Neutrophils # 3.0 (1.8-7.7) K/mm3 Sodium 139 (137-145) mmol/L Potassium 3.9 (3.6-5.0) mmol/L Chloride 101.7 (98-107) mmol/L Carbon Dioxide 25 (22-30) mmol/L Anion Gap 16 mmol/L BUN 11 (9-20) mg/dL Creatinine 0.9 (0.8-1.5) mg/dL Estimated GFR > 60 ml/min BUN/Creatinine Ratio 12 % Glucose 119 H (75-100) mg/dL Calcium 8.8 (8.4-10.2) mg/dL - EKG Data -: EKG Interpreted by Me (attending physician) Rate: tachycardia (10 4 bpm.) - EKG Data Interpretation: no acute changes - Radiology Data Radiology results: report reviewed CT of the head and brain without contrast shows no acute findings. Findings [facility] [address] [place] [address] Cat Scan Report Signed Patient: BURKE KOO MR#: [id number] : 1955 Acct:[id number] Age/Sex: 63 / M ADM Date: 05/07/18 Loc: ED Attending Dr: Ordering Physician: AYAH BELTRAN MD Date of Service: 05/07/18 Procedure(s): CT head/brain wo con Accession Number(s): [id number] cc: ED MD RUBY FINAL REPORT EXAM: CT HEAD/BRAIN WO CON HISTORY: HEADACHE TECHNIQUE: Routine axial imaging was obtained of the brain without IV contrast. Comparison is made to the study of 12/02/2017. FINDINGS: There is no evidence of acute stroke or hemorrhage. The ventricular system is appropriate in size and is symmetric. The basal cisterns appear normal. The visualized sinuses are clear. The mastoid air cells are well pneumatized. The calvarium appears intact. IMPRESSION: No acute intracranial process. Transcribed By: RB Dictated By: TUSHAR CASTRO MD Electronically Authenticated By: TUSHAR CASTRO MD - Medical Decision Making This 63 old male here report that he has ongoing headache for a few days on and off he saw his primary care doctor and his blood pressure was okay at the time but then he went home to see when and his blood pressure was elevated. Patient is here for elevated blood pressure and headache. He has history of TIA with multiple other comorbidities and is worried that he might be having a stroke. CBC and BMP stable. CT scan of the head and brain without contrast dictated by radiologist and reported by myself and no acute findings. Patient given Tylenol 3 2 tablets emergency room for pain which relieved his pain. He was also placed on oxygen at 2 L is again to help with headache which he said helped. She is stable and discharged from ED with prescription for Ultram and follow up with his primary care physician in 2 days. I told him to keep monitors blood pressure and advised him to get a new cough that he can place on his arm rather than his wrist as this risks one does not give correct blood pressure. He said he will get one at [employer] tomorrow. Patient was understanding of instruction, CT scan and lab results and discharged from ED and went to Main ED to state where his is checked in for elevated blood sugar. - Differential Diagnosis intracranial versus extracranial abnormalities, simple headache Critical care attestation.: If time is entered above; I have spent that time in minutes in the direct care of this critically ill patient, excluding procedure time. ED Disposition Clinical Impression: Elevated blood pressure reading with diagnosis of hypertension Headache Qualifiers: Headache type: unspecified Headache chronicity pattern: acute headache Intractability: not intractable Qualified Code(s): R51 - Headache Disposition: DC-01 TO HOME OR SELFCARE Is pt being admited?: No Does the pt Need Aspirin: No Condition: Stable Instructions: Hypertension (ED), Acute Headache (ED) Additional Instructions: Please call your primary care physician in the morning and schedule an appoi ntment for follow-up visits 05/09/2018. Take Ultram as prescribed please do not drive or operate heavy machinery while taking this medication as it causes drowsiness Increase your fluid intake and rest If your condition worsens, please return to the emergency room Referrals: Follow up with, primary care physician in 2 days [Other] - 05/09/18 Forms: Work/School Release Form(ED)
[2018-05-07] MEDS: TYLENOL #3 PO ONE ×2 (01:45)
== END 2018-05-07 04:52 | disposition home or self-care (01) ==
LOC: ED 00:21
DX: I12.9 Hypertensive chronic kidney disease with stage 1 through stage 4 chronic kidney disease, or unspecified chronic kidney disease (principal); N18.9 Chronic kidney disease, unspecified; F31.9 Bipolar disorder, unspecified; F25.9 Schizoaffective disorder, unspecified; E78.00 Pure hypercholesterolemia, unspecified; Z86.73 Personal history of transient ischemic attack (TIA), and cerebral infarction without residual deficits; Z79.82 Long term (current) use of aspirin
CPT/HCPCS: 36415; 70450; 80048; 85025; 93005; 93010; 99284

== ENCOUNTER 2020-02-18 19:51 | Emergency (ER) | payer MEDICARE ==
[2020-02-18 20:25] VITALS: BP 128/77
--- NOTE | 2020-02-18 21:17 | Event Note ---
ED Screening Note ED Screening Note: pt presents for depression and increased stress he denies any SI or HI denies hallucinations PMHx bipolar and "kidney troubles" This initial assessment/diagnostic orders/clinical plan/treatment(s) is/are subject to change based on patients health status, clinical progression and re- assessment by fellow clinical providers in the ED. Further treatment and workup at subsequent clinical providers discretion. Patient/guardian urged not to elope from the ED as their condition may be serious if not clinically assessed and managed. Initial orders include: psych clearance MAIN ED
[2020-02-18 21:46] LABS: Basophils # (Auto) 0.1 K/mm3 (0.0-0.1); Basophils % (Auto) 0.8 % (0.0-1.8); Eosinophils # (Auto) 0.1 K/mm3 (0.0-0.4); Eosinophils % (Auto) 1.7 % (0.0-4.3); Hematocrit 39.5 % (35.5-45.6); Hemoglobin 14.1 gm/dl (11.8-15.2); Lymphocytes # (Auto) 2.6 K/mm3 (1.2-5.4); Lymphocytes % (Auto) 38.1 % (13.4-35.0); Mean Corpuscular HGB Conc 36 % (32-34); Mean Corpuscular Volume 90 fl (84-94); Monocytes # (Auto) 0.8 K/mm3 (0.0-0.8); Monocytes % (Auto) 11.6 % (0.0-7.3); Platelet Count 227 K/mm3 (140-440); Red Blood Count 4.38 M/mm3 (3.65-5.03); Red Cell Distribution Width 14.1 % (13.2-15.2)
[2020-02-18 22:11] LABS: Albumin 4.6 g/dL (3.9-5); Calcium 9.9 mg/dL (8.4-10.2)
--- NOTE | 2020-02-18 22:42 | Emergency Department Report ---
ED General Adult HPI - General Chief complaint: Altered Mental Status Stated complaint: AMS Time Seen by Provider: 02/18/20 21:15 Source: patient, EMS Mode of arrival: Stretcher Limitations: No Limitations - History of Present Illness Initial comments: Presents to ER with depression, anxious feeling for the past week. No suicidal ideations, no homocidal ideations. Patient also noticed difficulty remembering things for the past year. Lives with , able to remember enough to perform his ADLs. - Related Data Home Medications Medication Instructions Recorded Confirmed Last Taken Amlodipine Besylate [Norvasc] 2.5 mg PO DAILY 12/02/17 12/02/17 Unknown Benztropine [Cogentin] 2 mg PO QHS 12/02/17 12/02/17 Unknown Fenofibrate 160 mg PO DAILY 12/02/17 12/02/17 Unknown Mirtazapine [Remeron 30mg TAB] 30 mg PO QHS 12/02/17 12/02/17 Unknown Pantoprazole [Protonix TAB] 40 mg PO QDAY 12/02/17 12/02/17 Unknown Quetiapine Fumarate [QUEtiapine 300 mg PO QDAY 12/02/17 12/02/17 Unknown Fumarate] carvediloL [Coreg] 6.25 mg PO BID 12/02/17 12/02/17 Unknown gemfibroziL [Lopid] 600 mg PO BID 12/02/17 12/02/17 Unknown traZODone [Desyrel] 100 mg PO QHS 12/02/17 12/02/17 Unknown Previous Rx's Medication Instructions Recorded Last Taken Type Aspirin [Aspirin BABY CHEW TAB] 81 mg PO QDAY #30 tab.chew 12/04/17 Unknown Rx levoFLOXacin [Levaquin TAB] 500 mg PO QDAY #7 tablet 12/15/17 Unknown Rx traMADoL [Ultram 50 MG tab] 50 mg PO Q6HR PRN #12 tablet 05/07/18 Unknown Rx Allergies Allergy/AdvReac Type Severity Reaction Status Date / Time No Known Allergies Allergy Verified 12/02/17 10:17 ED Review of Systems ROS: Stated complaint: AMS Other details as noted in HPI Constitutional: denies: chills, fever Eyes: denies: eye pain, eye discharge, vision change ENT: denies: ear pain, throat pain Respiratory: denies: cough, shortness of breath, wheezing Cardiovascular: denies: chest pain, palpitations Endocrine: no symptoms reported Gastrointestinal: denies: abdominal pain, nausea, diarrhea Genitourinary: denies: urgency, dysuria Musculoskeletal: denies: back pain, joint swelling, arthralgia Skin: denies: rash, lesions Neurological: denies: headache, weakness, paresthesias Psychiatric: denies: anxiety, depression Hematological/Lymphatic: denies: easy bleeding, easy bruising ED Past Medical Hx - Past Medical History Previous Medical History?: Yes Hx Hypertension: Yes (denies at this time) Hx Renal Disease: Yes (CKD) Hx Psychiatric Treatment: Yes (bipolar / depression/schizoaffective) Additional medical history: HIGH CHOLESTEROL. TIA. ENLARGED PROSTATE - Surgical History Past Surgical History?: Yes Additional Surgical History: KNOT REMOVED UNDER RIGHT ARM "CAT SCRATCH FEVER ", tonsilectomy - Social History Smoking Status: Never Smoker Substance Use Type: None - Medications Home Medications: Home Medications Medication Instructions Recorded Confirmed Last Taken Type Amlodipine Besylate [Norvasc] 2.5 mg PO DAILY 12/02/17 12/02/17 Unknown History Benztropine [Cogentin] 2 mg PO QHS 12/02/17 12/02/17 Unknown History Fenofibrate 160 mg PO DAILY 12/02/17 12/02/17 Unknown History Mirtazapine [Remeron 30mg TAB] 30 mg PO QHS 12/02/17 12/02/17 Unknown History Pantoprazole [Protonix TAB] 40 mg PO QDAY 12/02/17 12/02/17 Unknown History Quetiapine Fumarate [QUEtiapine 300 mg PO QDAY 12/02/17 12/02/17 Unknown History Fumarate] carvediloL [Coreg] 6.25 mg PO BID 12/02/17 12/02/17 Unknown History gemfibroziL [Lopid] 600 mg PO BID 12/02/17 12/02/17 Unknown History traZODone [Desyrel] 100 mg PO QHS 12/02/17 12/02/17 Unknown History Aspirin [Aspirin BABY CHEW TAB] 81 mg PO QDAY #30 tab.chew 12/04/17 Unknown Rx levoFLOXacin [Levaquin TAB] 500 mg PO QDAY #7 tablet 12/15/17 Unknown Rx traMADoL [Ultram 50 MG tab] 50 mg PO Q6HR PRN #12 tablet 05/07/18 Unknown Rx ED Physical Exam - General Limitations: No Limitations General appearance: alert, in no apparent distress - Head Head exam: Present: atraumatic, normocephalic - Eye Eye exam: Present: normal appearance - ENT ENT exam: Present: mucous membranes moist - Neck Neck exam: Present: normal inspection - Respiratory Respiratory exam: Present: normal lung sounds bilaterally. Absent: respiratory distress - Cardiovascular Cardiovascular Exam: Present: regular rate, normal rhythm. Absent: systolic murmur, diastolic murmur, rubs, gallop - GI/Abdominal GI/Abdominal exam: Present: soft, normal bowel sounds - Rectal Rectal exam: Present: deferred - Extremities Exam Extremities exam: Present: normal inspection - Back Exam Back exam: Present: normal inspection - Neurological Exam Neurological exam: Present: alert, oriented X3 - Psychiatric Psychiatric exam: Present: normal affect, normal mood - Skin Skin exam: Present: warm, dry, intact, normal color. Absent: rash ED Course Vital Signs 02/18/20 20:18 Temperature 98.5 F Pulse Rate 103 H Respiratory 17 Rate Blood Pressure 128/77 O2 Sat by Pulse 97 Oximetry - Reevaluation(s) Reevaluation #1: 02/18/20 22:33 Labs unremarkable, patient denies suicidal ideations, denies homicidal ideations, wants to go home, will DC asked to follow-up with PCP. 02/18/20 22:33 ED Medical Decision Making - Lab Data Result diagrams: 02/18/20 21:25 02/18/20 21:25 Critical care attestation.: If time is entered above; I have spent that time in minutes in the direct care o f this critically ill patient, excluding procedure time. ED Disposition Clinical Impression: Anxiety Depression Qualifiers: Depression Type: dysthymia Qualified Code(s): F34.1 - Dysthymic disorder Disposition: DC-01 TO HOME OR SELFCARE Is pt being admited?: No Does the pt Need Aspirin: No Condition: Stable Instructions: Dementia (ED), Generalized Anxiety Disorder (ED) Referrals: PRIMARY CARE, [Primary Care Provider] - 3-5 Days
== END 2020-02-18 23:38 | disposition home or self-care (01) ==
LOC: ED 19:51
DX: F41.9 Anxiety disorder, unspecified (principal); F32.9 Major depressive disorder, single episode, unspecified; Z79.899 Other long term (current) drug therapy
CPT/HCPCS: 36415; 80053; 80320; 85025; 99283; G0480